=== PATIENT | female | born 1990 | race Caucasian/White ===

== ENCOUNTER 2016-05-08 01:16 | Emergency (ER) | payer BC ==
--- NOTE | 2016-05-08 01:24 | PDOC ---
History of Present Illness - General Chief Complaint: Nausea/Vomiting Stated Complaint: N/V Time Seen by Provider: 05/08/16 01:18 - History of Present Illness Initial Comments: This 26-year-old woman with a history of gastritis (thought to be secondary to NSAID use and endoscopically diagnosed) and anxiety/panic disorder, presents with a few hour history of acute anxiety followed by epigastric pain/nausea/ vomiting. 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 The patient reacted with near panic attack and somatic symptoms as noted above. The patient states that she frequently has abdominal pain (both epigastric and generalized, secondary to irritable bowel syndrome) when stressed or having extreme anxiety. She states that she has follow-up with her hr administrative assistant in approximately 2 weeks. She also has an ultrasound of her abdomen scheduled for this May 10. The patient has also been on Lexapro 20 mg daily for a few months, as treatment for her anxiety disorder, prescribed by her former psychiatrist. She can no longer see this psychiatrist because of insurance issues. Her general medical doctor had wanted to keep her on this medication until he can refer her to a psychiatrist within her insurance plan. The patient has follow-up appointment with her general doctor next week. However, her prescription for Lexapro ran out today. Past History - Past Medical History Allergies/Adverse Reactions: Allergies Allergy/AdvReac Type Severity Reaction Status Date / Time No Known Allergies Allergy Unverified 05/08/16 01:25 Home Medications: Ambulatory Orders Escitalopram Oxalate [Lexapro -] 20 mg PO DAILY #10 tablet 05/08/16 Ondansetron [Zofran Odt -] 4 mg SL TID #10 od.tablet 05/08/16 Pantoprazole Sodium 40 mg PO DAILY 05/08/16 Review of Systems - Review of Systems Able to Perform ROS?: Yes Comments:: 12 point review of systems is negative except for what is noted in the history of present illness *Physical Exam - Physical Exam Comments: Adult female, appearing anxious and in mild distress secondary to nausea/ epigastric discomfort, oriented 3 Vital signs as noted HEAD: No contusions, abrasions or lacerations of the scalp; no facial ecchymosis , deformities or tenderness EYES: Pupils equal, round and reactive to light, extraocular movements intact, sclera anicteric, conjunctiva clear PHARYNX: No erythema, exudate or edema; mucous membranes dry NECK: Supple, nontender, no masses or bruits LUNGS: Clear to auscultation bilaterally CARDIAC: S1, S2 normal; no extra sounds, rubs or murmurs heard ABDOMEN:Normoactive bowel sounds, generalized mild tenderness without peritoneal signs,, no masses, no organomegaly EXTREMITIES: Normal range of motion, no edema,deformity or tenderness NEUROLOGICAL: Cranial nerves II through XII grossly intact. Normal speech, normal gait.moving all 4 extremities equally, Sensation intact in all extremities. PSYCH: Normal mood, normal affect. SKIN: Warm, Dry, normal turgor, no rashes or lesions noted. Medical Decision Making - Medical Decision Making This 26-year-old woman presents with anxiety and epigastric discomfort/nausea with vomiting. Exam shows dry mucous membranes and epigastric tenderness (mild of without peritoneal signs). Patient will be given a liter of normal saline, 4 mg of Zofran IV and 40 mg of Protonix IV. Patient feels significantly better after fluid hydration and medications IV. Patient will be discharged with prescriptions for Lexapro 20 mg daily which she should continue until seen by her general medical doctor next week. Prescription for Zofran 4 mg ODT was also sent to her pharmacy for use when she has nausea. She should also continue her Protonix as prescribed and follow-up with her hr administrative assistant as planned. She should try to eat small frequent meals. Patient should return to the emergency room if she has persistent vomiting or develops persistent abdominal pain/fever *DC/Admit/Observation/Transfer Diagnosis at time of Disposition: Anxiety Gastritis Qualifiers: Gastritis type: other gastritis Chronicity: unspecified Gastritis bleeding: without bleeding Qualified Code(s): K29.60 - Other gastritis without bleeding - Discharge Dispostion Disposition: HOME Condition at time of disposition: Stable - Prescriptions Prescriptions: Escitalopram Oxalate [Lexapro -] 20 mg PO DAILY #10 tablet Ondansetron [Zofran Odt -] 4 mg SL TID #10 od.tablet - Patient Instructions Printed Discharge Instructions: DI for Gastritis Additional Instructions: Continue Protonix as prescribed Try to eat small ,frequent meals Continue Lexapro 20 mg daily until seen by your general physician Follow-up for abdominal ultrasound on May 10 as planned Zofran 4 mg ODT up to 3 times a day as needed for nausea Return to ER if you have severe pain/persistent vomiting No work tomorrow - Post Discharge Activity Work/School Note: Back to Work
[2016-05-08 01:25] VITALS: BP 102/67; PULSE 100; TEMP 97.9
[2016-05-08] MEDS ORDERED: ONDANSETRON 4 MG/2 ML VIAL ONE (01:31)
[2016-05-08] MEDS ORDERED: ONDANSETRON 4 MG/2 ML VIAL IVPUSH ONE (01:36)
[2016-05-08] MEDS ORDERED: SODIUM CHLORIDE 1,000 ML IV STA (01:36)
[2016-05-08] MEDS ORDERED: PANTOPRAZOLE SODIUM 40 MG in SODIUM CHLORIDE 100 ML IVPB ONE (01:36)
[2016-05-08] MEDS ORDERED: PANTOPRAZOLE SODIUM 40 MG VIAL ONE (01:41)
== END 2016-05-08 04:00 | disposition home or self-care (01) ==
LOC: FER 01:16
PROC: 3E033GC Introduction of Other Therapeutic Substance into Peripheral Vein, Percutaneous Approach (ICD-10-PCS; principal; 2016-05-08)
PROC: 3E0337Z Introduction of Electrolytic and Water Balance Substance into Peripheral Vein, Percutaneous Approach (ICD-10-PCS; 2016-05-08)
DX: F41.1 Generalized anxiety disorder (principal); K29.60 Other gastritis without bleeding
CPT/HCPCS: 99283-25

== ENCOUNTER 2016-06-07 14:25 | Inpatient (IN) | payer BC ==
[2016-06-07 14:47] VITALS: BMI 18.8
[2016-06-07] MEDS ORDERED: METOCLOPRAMIDE HCL INJECTION 10 MG/2 ML VIAL IVPB ONE (15:25)
[2016-06-07] MEDS ORDERED: PANTOPRAZOLE SODIUM 40 MG in SODIUM CHLORIDE 100 ML IVPB ONE (15:25)
[2016-06-07] MEDS ORDERED: SODIUM CHLORIDE 1,000 ML IV STA ×2 (15:25→18:54)
[2016-06-07] MEDS ORDERED: PANTOPRAZOLE SODIUM 40 MG VIAL ONE (15:26)
[2016-06-07 15:41] LABS: BASOPHIL 0.2 % (0-2.0); MCH 27.7 pg (25.7-33.7); MCHC 32.1 g/dl (32.0-36.0); MEAN CELL VOLUME 86.3 fl (80-96); MEAN PLT VOLUME 8.5 fl (7.5-11.1); NEUTROPHILS 84.1 % (42.8-82.8); PLATELET COUNT 434 K/MM3 (134-434); RDW 11.8 % (11.6-15.6); WHITE BLOOD COUNT 17.5 K/mm3 (4.0-10.0)
--- NOTE | 2016-06-07 15:46 | PDOC ---
History of Present Illness - General History Source: Patient Exam Limitations: No Limitations - History of Present Illness Initial Comments: 06/07/16 16:12 The patient is a 26-year-old woman with a history of gastritis (thought to be secondary to NSAID use and endoscopically diagnosed), gastroparesis, and anxiety /panic disorder, who presents to the ED with mid-abdominal pain radiating to the back, diarrhea, and multiple episodes of vomiting. Patient describes the mid-abdominal pain as stabbing and 20/10 in severity. She states she has never experienced this pain in the past. Patient says she ate a salad with chicken last night and has not been able to eat anything since. Patient denies fever, chills, constipation, hematochezia, dysuria, hematuria. Patient denies smoking, marijuana use. Patient was seen here in the ER on may 08 for nausea, vomiting. She followed up with GI doctor last week, and was diagnosed with gastroparesis. Plan is to follow up with specialist at [place] on jun 25 <Erick Correia - Last Filed: 06/07/16 19:43> <Kimmie Zamora - Last Filed: 06/07/16 19:53> - General History Source: Patient Exam Limitations: No Limitations <Wendi Bowman - Last Filed: 06/09/16 09:54> - General Chief Complaint: Vomiting/Diarrhea Stated Complaint: ABD PAIN, VOMITING, DIARRHEA Time Seen by Provider: 06/07/16 14:30 Past History <Erick Correia - Last Filed: 06/07/16 19:43> <Kimmie Zamora - Last Filed: 06/07/16 19:53> - Past Medical History GI Disorders: Yes (GASTROPARESIS) Psychiatric Problems: Yes (ANXIETY, DEPRESSION) - Psycho/Social/Smoking Cessation Hx Anxiety: No Suicidal Ideation: No Smoking History: Never smoked Have you smoked in the past 12 months: No Number of Cigarettes Smoked Daily: 0 Hx Alcohol Use: No Drug/Substance Use Hx: No Substance Use Type: None <Wendi Bowman - Last Filed: 06/09/16 09:54> - Past Medical History Allergies/Adverse Reactions: Allergies Allergy/AdvReac Type Severity Reaction Status Date / Time No Known Allergies Allergy Verified 06/07/16 14:31 Home Medications: Ambulatory Orders Escitalopram Oxalate [Lexapro -] 20 mg PO DAILY #10 tablet 05/08/16 Ondansetron [Zofran Odt -] 4 mg SL TID #10 od.tablet 05/08/16 Pantoprazole Sodium 40 mg PO DAILY 05/08/16 Review of Systems - Review of Systems Able to Perform ROS?: Yes Comments:: 06/07/16 16:12 GENERAL/CONSTITUTIONAL: No: fever, chills, weakness, loss of appetite. HEAD, EYES, EARS, NOSE AND THROAT: No: change in vision, ear pain, discharge, sore throat, throat swelling. CARDIOVASCULAR: No: chest pain, lightheadedness, palpitations, syncope RESPIRATORY: No: cough, shortness of breath, wheezing, hemoptysis, stridor. GASTROINTESTINAL: + nausea, vomiting, mid-abdominal pain radiating to the back. diarrhea No: rectal bleeding, constipation. GENITOURINARY: No: dysuria, hematuria, frequency, urgency, flank pain. MUSCULOSKELETAL: No: neck pain, joint pain, muscle swelling or pain SKIN AND BREASTS: No: lesions, pallor, rash or easy bruising. NEUROLOGIC: No: headache, vertigo, paresthesias, weakness ENDOCRINE: No: unexplained weight gain or loss HEMATOLOGIC/LYMPHATIC: No: anemia, easy bleeding, swelling nodes <Erick Correia - Last Filed: 06/07/16 19:43> *Physical Exam - Vital Signs Last Vital Signs Temp Pulse Resp BP Pulse Ox 97.5 F L 98 H 18 127/68 98 06/07/16 14:25 06/07/16 14:25 06/07/16 14:25 06/07/16 14:25 06/07/16 14:25 - Physical Exam Comments: 06/07/16 16:13 GENERAL: Uncomfortable appearing. Crying. Screaming. Lying on the floor. Retching. HEAD: Normal with no signs of trauma. EYES: PERRLA, EOMI, sclera anicteric, conjunctiva clear. ENT: Ears normal, nares patent, oropharynx clear without exudates. Dry mucous membranes. NECK: Normal range of motion, supple without lymphadenopathy, JVD, or masses. LUNGS: Breath sounds equal, clear to auscultation bilaterally. No wheezes, and no crackles. HEART:Regular rate and rhythm, normal S1 and S2 without murmur, rub or gallop. ABDOMEN: Epigastric tenderness. No guarding, no rebound. No distention. EXTREMITIES: Normal range of motion, no edema. No clubbing or cyanosis. No erythema, or tenderness. NEUROLOGICAL: Cranial nerves II through XII grossly intact. Normal speech. No focal neurological deficits. MUSCULOSKELETAL: Back non-tender to palpation, no CVA tenderness SKIN: Warm, Dry, normal turgor, no rashes or lesions noted. <Erick Correia - Last Filed: 06/07/16 19:43> - Vital Signs Last Vital Signs Temp Pulse Resp BP Pulse Ox 98.5 F 89 16 116/75 99 06/07/16 19:25 06/07/16 19:25 06/07/16 19:25 06/07/16 19:25 06/07/16 19:25 <Kimmie Zamora - Last Filed: 06/07/16 19:53> - Vital Signs Last Vital Signs Temp Pulse Resp BP Pulse Ox 97.5 F L 98 H 18 127/68 98 06/07/16 14:25 06/07/16 14:25 06/07/16 14:25 06/07/16 14:25 06/07/16 14:25 <Wendi Bowman - Last Filed: 06/09/16 09:54> ED Treatment Course - LABORATORY CBC & Chemistry Diagram: 06/07/16 15:30 06/07/16 15:30 - ADDITIONAL ORDERS Additional order review: Laboratory Results 06/07/16 15:30 Serum , Qual Negative 06/07/16 15:30 RBC 4.70 MCV 86.3 MCHC 32.1 RDW 11.8 MPV 8.5 Neutrophils % 84.1 H Lymphocytes % 11.4 Monocytes % 4.3 Eosinophils % 0.0 Basophils % 0.2 - RADIOLOGY Radiology Studies Ordered: 06/07/16 19:07 EXAM: CT abdomen and pelvis noncontrast EXAM DATE AND TIME: 2016-06-07 16:48:07.0 REASON FOR EXAM: Abdomen and flank pain COMPARISON: None. FINDINGS: The visualized lung bases are clear The liver is mildly enlarged. The unenhanced upper abdominal are otherwise grossly normal. No evidence of obstructive uropathy There is intussusception in a segment of small bowel in the lower abdomen and pelvis A distended segment of small bowel with air-fluid levels immediately proximal to the intussusception and several nondistended small bowel loops in the pelvis are concerning for early obstruction. The appendix is normal There is trace ascites in the pelvis which may be incidental physiologic fluid. No free air - Medications Given in the ED: ED Medications Discontinued Medications Generic Name Dose Route Start Last Admin Trade Name Kirill PRN Reason Stop Dose Admin Pantoprazole Sodium 40 mg/ 100 mls @ 200 mls/hr 06/07/16 15:25 06/07/16 15:30 Sodium Chloride IVPB 06/07/16 15:54 200 mls/hr ONCE ONE Administration Metoclopramide HCl 10 mg 06/07/16 15:25 06/07/16 15:45 Reglan Injection - IVPB 06/07/16 15:26 10 mg ONCE ONE Administration <Erick Correia - Last Filed: 06/07/16 19:43> - LABORATORY CBC & Chemistry Diagram: 06/07/16 15:30 06/07/16 15:30 - ADDITIONAL ORDERS Additional order review: Laboratory Results 06/07/16 06/07/16 06/07/16 18:20 17:57 17:45 INR 1.07 Sodium Potassium Chloride Carbon Dioxide Anion Gap BUN Creatinine Creat Clearance w eGFR Random Glucose Lactic Acid 2.260 H* Calcium Total Bilirubin AST ALT Alkaline Phosphatase Total Protein Albumin Total Amylase Lipase Serum , Qual Urine Color Yellow Urine Appearance Clear Urine pH 6.0 Ur Specific [place] 1.025 Urine Protein Negative Urine Glucose (UA) Trace Urine Ketones 1+ H Urine Blood Trace-intact Urine Nitrite Negative Urine Bilirubin Negative Urine Urobilinogen 0.2 e.u/dl Ur Leukocyte Esterase Negative 06/07/16 06/07/16 15:30 15:30 INR Sodium 137 Potassium 3.9 Chloride 99 Carbon Dioxide 24 Anion Gap 14 BUN 12 Creatinine 0.6 Creat Clearance w eGFR > 60 Random Glucose 180 H Lactic Acid Calcium 9.3 Total Bilirubin 0.3 AST 19 ALT 14 Alkaline Phosphatase 64 Total Protein 7.5 Albumin 3.7 Total Amylase 36 Lipase 30 Serum , Qual Negative Urine Color Urine Appearance Urine pH Ur Specific [place] Urine Protein Urine Glucose (UA) Urine Ketones Urine Blood Urine Nitrite Urine Bilirubin Urine Urobilinogen Ur Leukocyte Esterase 06/07/16 15:30 RBC 4.70 MCV 86.3 MCHC 32.1 RDW 11.8 MPV 8.5 Neutrophils % 84.1 H Lymphocytes % 11.4 Monocytes % 4.3 Eosinophils % 0.0 Basophils % 0.2 - Medications Given in the ED: ED Medications Discontinued Medications Generic Name Dose Route Start Last Admin Trade Name Kirill PRN Reason Stop Dose Admin Pantoprazole Sodium 40 mg/ 100 mls @ 200 mls/hr 06/07/16 15:25 06/07/16 15:30 Sodium Chloride IVPB 06/07/16 15:54 200 mls/hr ONCE ONE Administration Sodium Chloride 1,000 mls @ 1,000 mls/hr 06/07/16 15:25 06/07/16 15:00 Normal Saline - IV 06/07/16 16:24 1,000 mls/hr ASDIR STA Administration Lorazepam 0.5 mg 06/07/16 16:02 06/07/16 16:10 Ativan Injection - IVPUSH 06/07/16 16:03 0.5 mg ONCE ONE Administration Metoclopramide HCl 10 mg 06/07/16 15:25 06/07/16 15:45 Reglan Injection - IVPB 06/07/16 15:26 10 mg ONCE ONE Administration Morphine Sulfate 4 mg 06/07/16 16:02 06/07/16 16:05 Morphine Injection - IVPUSH 06/07/16 16:03 4 mg ONCE ONE Administration <Kimmie Zamora - Last Filed: 06/07/16 19:53> - LABORATORY CBC & Chemistry Diagram: 06/08/16 06:40 06/08/16 06:40 - ADDITIONAL ORDERS Additional order review: 06/07/16 15:30 RBC 4.70 MCV 86.3 MCHC 32.1 RDW 11.8 MPV 8.5 Neutrophils % 84.1 H Lymphocytes % 11.4 Monocytes % 4.3 Eosinophils % 0.0 Basophils % 0.2 <Wendi Bowman - Last Filed: 06/09/16 09:54> Medical Decision Making - Medical Decision Making 06/07/16 17:[address] Dr Mai <Erick Correia - Last Filed: 06/07/16 19:43> - Critical Care Time Total Critical Care Time (minutes): 35 Critical Care Statement: The care of this patient involved high complexity decision making to prevent further life threatening deterioration of the patient 's condition and/or to evalute & treat vital organ system(s) failure or risk of failure. - Medical Decision Making 06/07/16 15:46 A portion of this note was documented by scribe services under my direction. I have reviewed the details of the note, within reason, and agree with the documentation with the following case summary and management plan written by me. Nursing documentation reviewed and incorporated into medical decision making 06/07/16 16:25 This is a 26 yo F with a history of anxiety and panic disorder, recent dx of gastroparesis who presents to the ER with a complaint of abdominal pain and vomiting Pt was in her usual state of health until yesterday She had a salad with chicken Later in the evening she noted abdominal pain which has been worsening Pain is located in the upper abdomen She aso has pain going into her back No fevers or chills Multiple episodes of vomiting and diarrhea No abdominal distention DD: gastroparesis, gastroenteritis, colitis, pancreatitis 06/07/16 16:25 Laboratory Tests 06/07/16 06/07/16 15:30 15:30 WBC 17.5 H Hgb 13.0 Hct 40.6 Plt Count 434 Neutrophils % 84.1 H Sodium 137 Potassium 3.9 Chloride 99 Carbon Dioxide 24 BUN 12 Creatinine 0.6 Random Glucose 180 H 06/07/16 16:[address] abd and pelvis 06/07/16 17:51 CT demonstrates intussusception with early SBO Case reviewed with patient and family Call placed to Dr Mai 06/07/16 18:[address] Mai He has had a long discussion with this patient She would rather have an exploratory surgery Case reviewed with JUKE[employer] ROUTEMAN Jonathan Will admit to hospitalist service Clinical Impression: Intussusception Lactic acid pending <Wendi Bowman - Last Filed: 06/09/16 09:54> *DC/Admit/Observation/Transfer - Attestations Scribe Attestion: 06/07/16 16:17 Documentation prepared by Erick Correia, acting as medical microbiologist for Wendi Bowman MD. <Erick Correia - Last Filed: 06/07/16 19:43> - Discharge Dispostion Admit: Yes <Kimmie Zamora - Last Filed: 06/07/16 19:53> - Discharge Dispostion Admit: Yes <Wendi Bowman - Last Filed: 06/09/16 09:54> Diagnosis at time of Disposition: Intussusception intestine - Discharge Dispostion Condition at time of disposition: Stable
[2016-06-07] MEDS ORDERED: LORAZEPAM CARPU-JECT 2 MG/ML DISP.SYRIN IVPUSH ONE (16:02)
[2016-06-07] MEDS ORDERED: morphine CARPU-JECT 4 MG/1 ML DISP.SYRIN IVPUSH ONE (16:02)
[2016-06-07] MEDS ORDERED: morphine CARPU-JECT 10 MG/1 ML DISP.SYRIN ONE (16:03)
[2016-06-07] MEDS ORDERED: LORAZEPAM CARPU-JECT 2 MG/ML DISP.SYRIN ONE (16:03)
[2016-06-07 16:14] LABS: ALBUMIN 3.7 g/dl (3.5-5.0); ALK PHOS 64 U/L (32-92); AMYLASE 36 U/L (25-125); ANION GAP 14 (8-16); BILIRUBIN,TOTAL 0.3 mg/dl (0.2-1.0); CALCIUM 9.3 mg/dl (8.4-10.2); CO2 24 mmol/L (22-28); CREATININE 0.6 mg/dl (0.6-1.3); GLUCOSE,RANDOM 180 mg/dl (74-106); SGOT/AST 19 U/L (10-42); SGPT/ALT 14 U/L (10-40); TOT PROT 7.5 g/dl (6.4-8.3)
[2016-06-07 18:05] LABS: URINE APPEARANCE Clear; URINE BILIRUBIN Negative (NEGATIVE); URINE BLOOD Trace-intact (NEGATIVE); URINE GLUCOSE (UA) Trace (NEGATIVE); URINE KETONE 1+ (NEGATIVE); URINE LEUK ESTERASE Negative (NEGATIVE); URINE NITRITE Negative (NEGATIVE); URINE PROTEIN Negative (NEGATIVE); URINE UROBILINOGEN 0.2 E.U/dl (0.2-1.0)
[2016-06-07 18:06] LABS: URINE COLOR YELLOW
[2016-06-07 18:56] LABS: INR 1.07 (0.82-1.09); PROTHROMBIN TIME (PATIENT) 11.7 SEC (10.2-13.0)
[2016-06-07] MEDS ORDERED: PROPOFOL 20 ML ONE (19:32)
[2016-06-07] MEDS ORDERED: MIDAZOLAM HCL 2 MG/2 ML SINGLE DOSE VIAL ONE ×2 (19:32→20:06)
[2016-06-07] MEDS ORDERED: SUCCINYLCHOLINE CHLORIDE 200 MG/10 ML VIAL ONE (19:32)
[2016-06-07] MEDS ORDERED: ROCURONIUM BROMIDE 50 MG/5 ML VIAL ONE (19:32)
[2016-06-07] MEDS ORDERED: ONDANSETRON 4 MG/2 ML VIAL ONE ×2 (19:32→20:13)
--- NOTE | 2016-06-07 19:43 | PN ---
Progress Note (short form) - Note Progress Note: surgery pt seen and examined. Full ER consult dictated. 26f with 3 months of intermittent epigastric pain, diarrhea, 10lb weight loss. Pt has seen GI specialist for egd, HIDA, US, and stomach emptying study. Pt was given a diagnosis of gastroparesis. No hx of dm. Pt presents to [facility] ER with severe epigastric pain, blood in her stool, leukocytosis, and Ct showing intussuception of mid small bowel causing psbo and ascites. On exam abd is soft , with 4 quadrant tenderness, rebound, no guarding. Plan- suspect intussuception from lead point, possible polyp/endometriosis, or tumor. It could also be an incidental finding with other etiology of her symptoms but less likely. Pt offered observation and repeat ct in am with contrast to see if intussucception is permanant or a transient finding. Pt, mother, and father decline and want exploratory surgery. Will proceed with surgery. Pt understands risk of negative laparotomy, incisional hernia, future sbo, anastamotic leak. will give levaquin to cover skin osvaldo and e.coli and other enteric osvaldo.
[2016-06-07] MEDS ORDERED: LEVOFLOXACIN 25 MG/1 ML (20 ML VIAL) IVPB ONE (19:44)
[2016-06-07] MEDS ORDERED: ONDANSETRON 4 MG/2 ML VIAL IVPB PRN ×3 (19:51→20:22)
[2016-06-07] MEDS ORDERED: ACETAMINOPHEN 325 MG TABLET (FP) PO PRN ×3 (19:51→20:22)
[2016-06-07] MEDS ORDERED: IBUPROFEN 800 MG/8 ML IJ IVPB PRN (19:54)
--- NOTE | 2016-06-07 19:58 | OP ---
Operative Note - Note: Operative Date: 06/07/16 Pre-Operative Diagnosis: intussucception, sbo, acute abdomen Operation: exploratory laparotomy, small bowel resection Findings: thickened segment of small bowel with intussucception, hemorrhagic bowel Post-Operative Diagnosis: Same as Pre-op Surgeon: Narinder Mai Anesthesiologist/CONSUMER LOAN MANAGER: Brad Cortés Anesthesia: General Specimens Removed: portion of small bowel with intussucception Estimated Blood Loss (mls): 10
[2016-06-07] MEDS ORDERED: D5-1/2NS+20 MEQ KCL - 1,000 ML IV SCH ×4 (20:00)
[2016-06-07] MEDS ORDERED: HYDROmorphone *PCA* 10MG/50ML DISP.SYRIN PCA ONE ×2 (20:03→22:22)
[2016-06-07] MEDS ORDERED: DEXAMETHASONE SOD PHOSPHATE 4 MG/1 ML VIAL ONE (20:14)
[2016-06-07] MEDS ORDERED: NEOSTIGMINE METHYLSULFATE 0.5 MG/ML - 10 ML MDV ONE (20:14)
[2016-06-07] MEDS ORDERED: GLYCOPYRROLATE 0.2 MG/1 ML VIAL ONE ×3 (20:14)
[2016-06-07] MEDS ORDERED: HYDROmorphone *PCA* 10MG/50ML DISP.SYRIN PCA SCH (21:30)
[2016-06-07] MEDS ORDERED: LACTATED RINGERS SOLUTION 1,000 ML IV SCH (21:30)
[2016-06-07] MEDS ORDERED: SODIUM CHLORIDE 250 ML IV STA (21:48)
--- NOTE | 2016-06-07 21:50 | CONS ---
DATE OF CONSULTATION: 06/07/2016 REASON FOR CONSULTATION: Intussusception. CONSULTATION REQUESTED BY: Emergency Room Physician. BRIEF HISTORY: This is a 26-year-old female with a 3-month history of epigastric abdominal pain, 10-pound weight loss, nausea, vomiting, and diarrhea. She has had an extensive GI workup including upper endoscopy, HIDA scan, abdominal ultrasound and gastric emptying study. She has not had a colonoscopy. At this point, her working diagnosis is gastroparesis, although she has no history of diabetes. The patient presents to the [facility] where this emergency room consultation was requested, complaining of worsening of pain, diarrhea, and now blood in her stool, and she also has vomiting. She is noted to have 4-quadrant tenderness with leukocytosis and a CAT scan is done without contrast showing a segment of small bowel with an intussusception causing a partial bowel obstruction and fluid within the abdominal cavity. At this point, an ER surgical consultation was requested. Patient states the pain is severe. PAST MEDICAL HISTORY: Otherwise negative. PAST SURGICAL HISTORY: Only includes oral surgery without bleeding complications. SOCIAL HISTORY: Positive for occasional alcohol consumption. Negative for tobacco. FAMILY HISTORY: Significant for father with prostate cancer. ALLERGIES: She has no known drug allergies. HOME MEDICATIONS: Include control pills, Protonix, Lexapro, and Zofran. REVIEW OF SYSTEMS: General: Admits to fatigue. Cardiac: Denies chest pain or palpitations. Respiratory: Denies shortness of breath or wheeze. Gastrointestinal: As in HPI. She admits to 10-pound with loss. Genitourinary: Denies dysuria. Musculoskeletal: Denies joint pain or joint swelling. Psychiatric: Denies anxiety, depression or hearing voices. PHYSICAL EXAMINATION: General: This is a thin 26-year-old female who is writhing in pain. Vital Signs: She is afebrile. Her vital signs are stable. HEENT: Her head is normocephalic. Sclerae are anicteric. Neck: Supple. Chest: Clear. Abdomen: Mildly distended. There are no surgical scars. She has 4-quadrant tenderness with rebound but there is no guarding. Extremities: No clubbing, cyanosis, or edema. Anal: Deferred. She is under the care of a dairy lab technician. LABORATORY DATA: Her white blood cell count is elevated 17.5. Her chemistries are unremarkable with normal lipase, and she is not . IMAGING: She has a CT scan of the abdomen and pelvis. [place] reading shows a normal appendix, trace ascites, intussusception and a segment of small bowel in the lower abdomen and pelvis and proximal distention consistent with early obstruction. ASSESSMENT: This is a 26-year-old female with weight loss, epigastric abdominal pain, nausea, vomiting, diarrhea, blood in her stool, leukocytosis, and a CAT scan showing an abnormal segment of small bowel with an intussusception, a small amount of ascites and causing a proximal obstruction. Patient is clinically in severe pain. She has blood in her stool. I am concerned for an intussusception caused by a lead point, which I suspect has been causing her chronic symptoms since March that are now becoming acute with possible compromise of the bowel. At this point, I have offered the patient exploratory surgery. I have also discussed the possibility that the intussusception is simply a transient finding and that her symptoms may be from her underlying gastroparesis and gastritis, but based on the patient's examination, I am concerned that this may not be the case. I have offered her to be observed overnight with repeat CAT scan in the morning utilizing oral and IV contrast to see if the intussusception is indeed a permanent finding, but patient declines this option. She states she is in too much pain and wished to be explored tonight. I had a long conversation with the patient, her mother as well as her father, taking place for over 30 minutes and all are in agreement to proceed with surgery. They understand that this might be a negative nontherapeutic laparotomy. They also understand that she has future risk of hernia as well as future obstruction and that she could have anastomotic leak if a segment of small bowel is resected, as is planned. PLAN: At this point, will give her Levaquin prophylaxis and move in the direction of surgery. The family understands that she has not had a complete workup and has not a colonoscopy. They understand this could be underlying Crohn disease, which is often treated with medications. They also understand that this could be complications of endometriosis, which also could be treated medically but with no diagnosis being confirmed and an inability to do further workup in the acute setting, they have agreed to proceed with surgery. DO CATRACHITA SEAMAN/[id number]
--- NOTE | 2016-06-07 21:58 | HP ---
CHIEF COMPLAINT: Abdominal Pain PCP: HISTORY OF PRESENT ILLNESS: This is a 26 y/o female with a past medical history gastritis (thought to be secondary to NSAID use and endoscopically diagnosed), gastroparesis, and anxiety /panic disorder. Who presents to the ED with mid-abdominal pain radiating to the back, diarrhea, and multiple episodes of vomiting. Patient describes the mid-abdominal pain as stabbing and 20/10 in severity. She states she has never experienced this pain in the past. Patient says she ate a salad with chicken last night and has not been able to eat anything since. Patient denies fever, chills, constipation, hematochezia, dysuria, hematuria. Patient denies smoking, marijuana use. ER course was notable for: (1) WBC 17.5, Neutrophils 84.1 (2) CTAP- There is intussusception in a segment of small bowel in the lower abdomen and pelvis (3) Recent Travel: None PAST MEDICAL HISTORY: Gastritis Gastroparesis Anxiety/Panic Disorder PAST SURGICAL HISTORY: EGD Social History: Smoking: None Alcohol: None Drugs: None Family History: Non-Contributory Allergies No Known Allergies Allergy (Verified 06/07/16 14:31) HOME MEDICATIONS: Home Medications Medication Instructions Recorded Escitalopram Oxalate [Lexapro -] 20 mg PO DAILY #10 tablet 05/08/16 Ondansetron [Zofran Odt -] 4 mg SL TID #10 od.tablet 05/08/16 Pantoprazole Sodium 40 mg PO DAILY 05/08/16 REVIEW OF SYSTEMS CONSTITUTIONAL: Absent: fever, chills, diaphoresis, generalized weakness, malaise, loss of appetite, weight change HEENT: Absent: rhinorrhea, nasal congestion, throat pain, throat swelling, difficulty swallowing, mouth swelling, ear pain, eye pain, visual changes CARDIOVASCULAR: Absent: chest pain, syncope, palpitations, irregular heart rate, lightheadedness , peripheral edema RESPIRATORY: Absent: cough, shortness of breath, dyspnea with exertion, orthopnea, wheezing, stridor, hemoptysis GASTROINTESTINAL: abdominal pain, nausea, vomiting, diarrhea Absent: abdominal distension, constipation, melena, hematochezia GENITOURINARY: Absent: dysuria, frequency, urgency, hesitancy, hematuria, flank pain, genital pain MUSCULOSKELETAL: Absent: myalgia, arthralgia, joint swelling, back pain, neck pain SKIN: Absent: rash, itching, pallor HEMATOLOGIC/IMMUNOLOGIC: Absent: easy bleeding, easy bruising, lymphadenopathy, frequent infections ENDOCRINE: Absent: unexplained weight gain, unexplained weight loss, heat intolerance, cold intolerance NEUROLOGIC: Absent: headache, focal weakness or paresthesias, dizziness, unsteady gait, seizure, mental status changes, bladder or bowel incontinence PSYCHIATRIC: Absent: anxiety, depression, suicidal or homicidal ideation, hallucinations. PHYSICAL EXAMINATION Vital Signs - 24 hr 06/07/16 06/07/16 06/07/16 21:22 21:25 21:30 Temperature 98.6 F Pulse Rate 101 H 95 H 93 H Respiratory 18 18 18 Rate Blood Pressure 114/67 115/71 111/84 O2 Sat by Pulse 100 100 100 Oximetry (%) 06/07/16 21:35 Temperature Pulse Rate 92 H Respiratory 18 Rate Blood Pressure 113/69 O2 Sat by Pulse 100 Oximetry (%) GENERAL: Asleep but arousable, oriented x3, in no acute distress. HEAD: Normal with no signs of trauma. EYES: Pupils equal, round and reactive to light, extraocular movements intact, sclera anicteric, conjunctiva clear. No lid lag. EARS, NOSE, THROAT: Ears normal, nares patent, oropharynx clear without exudates. Dry mucous membranes. NECK: Normal range of motion, supple without lymphadenopathy, JVD, or masses. LUNGS: Breath sounds equal, clear to auscultation bilaterally. No wheezes, and no crackles. No accessory muscle use. HEART: Regular rate and rhythm, normal S1 and S2 without murmur, rub or gallop. ABDOMEN: Generalized tenderness, hypoactive bowel sounds, dermabond with dressing intact to mid umbilical region. Soft, not distended, no guarding, no rebound, no masses. No hepatomegaly or splenomegaly. GENITOURINARY: Loaiza catheter with yellow urine in drainage bag 100cc MUSCULOSKELETAL: Normal range of motion at all joints. No bony deformities or tenderness. No CVA tenderness. UPPER EXTREMITIES: 2+ pulses, warm, well-perfused. No cyanosis. No clubbing. Cap refill <2 seconds. No peripheral edema. LOWER EXTREMITIES: 2+ pulses, warm, well-perfused. No calf tenderness. No peripheral edema. NEUROLOGICAL: Cranial nerves II-XII intact. Normal speech. Gait not observed. PSYCHIATRIC: Cooperative. Good eye contact. Appropriate mood and affect. SKIN: Warm, dry, normal turgor, no rashes or lesions noted. Laboratory Results - last 24 hr 06/07/16 06/07/16 06/07/16 15:30 15:30 15:30 WBC 17.5 H RBC 4.70 Hgb 13.0 Hct 40.6 MCV 86.3 MCHC 32.1 RDW 11.8 Plt Count 434 MPV 8.5 Neutrophils % 84.1 H Lymphocytes % 11.4 Monocytes % 4.3 Eosinophils % 0.0 Basophils % 0.2 INR Sodium 137 Potassium 3.9 Chloride 99 Carbon Dioxide 24 Anion Gap 14 BUN 12 Creatinine 0.6 Creat Clearance w eGFR > 60 Random Glucose 180 H Lactic Acid Calcium 9.3 Total Bilirubin 0.3 AST 19 ALT 14 Alkaline Phosphatase 64 Total Protein 7.5 Albumin 3.7 Total Amylase 36 Lipase 30 Serum , Qual Negative Urine Color Urine Appearance Urine pH Ur Specific Hodges Urine Protein Urine Glucose (UA) Urine Ketones Urine Blood Urine Nitrite Urine Bilirubin Urine Urobilinogen Ur Leukocyte Esterase Blood Type Antibody Screen 06/07/16 06/07/16 06/07/16 17:45 17:57 18:20 WBC RBC Hgb Hct MCV MCHC RDW Plt Count MPV Neutrophils % Lymphocytes % Monocytes % Eosinophils % Basophils % INR 1.07 Sodium Potassium Chloride Carbon Dioxide Anion Gap BUN Creatinine Creat Clearance w eGFR Random Glucose Lactic Acid 2.260 H* Calcium Total Bilirubin AST ALT Alkaline Phosphatase Total Protein Albumin Total Amylase Lipase Serum , Qual Urine Color Yellow Urine Appearance Clear Urine pH 6.0 Ur Specific Hodges 1.025 Urine Protein Negative Urine Glucose (UA) Trace Urine Ketones 1+ H Urine Blood Trace-intact Urine Nitrite Negative Urine Bilirubin Negative Urine Urobilinogen 0.2 e.u/dl Ur Leukocyte Esterase Negative Blood Type Antibody Screen 06/07/16 06/07/16 18:20 18:41 WBC RBC Hgb Hct MCV MCHC RDW Plt Count MPV Neutrophils % Lymphocytes % Monocytes % Eosinophils % Basophils % INR Sodium Potassium Chloride Carbon Dioxide Anion Gap BUN Creatinine Creat Clearance w eGFR Random Glucose Lactic Acid Calcium Total Bilirubin AST ALT Alkaline Phosphatase Total Protein Albumin Total Amylase Lipase Serum , Qual Urine Color Urine Appearance Urine pH Ur Specific Hodges Urine Protein Urine Glucose (UA) Urine Ketones Urine Blood Urine Nitrite Urine Bilirubin Urine Urobilinogen Ur Leukocyte Esterase Blood Type A POSITIVE A POSITIVE Antibody Screen Negative - RADIOLOGY Radiology Studies Ordered: 06/07/16 19:07 EXAM: CT abdomen and pelvis noncontrast EXAM DATE AND TIME: 2016-06-07 16:48:07.0 REASON FOR EXAM: Abdomen and flank pain COMPARISON: None. FINDINGS: The visualized lung bases are clear The liver is mildly enlarged. The unenhanced upper abdominal are otherwise grossly normal. No evidence of obstructive uropathy There is intussusception in a segment of small bowel in the lower abdomen and pelvis A distended segment of small bowel with air-fluid levels immediately proximal to the intussusception and several nondistended small bowel loops in the pelvis are concerning for early obstruction. The appendix is normal There is trace ascites in the pelvis which may be incidental physiologic fluid. No free air ASSESSMENT/PLAN: This is a 26 y/o female with a PMHx of: Gastritis (thought to be secondary to NSAID use and endoscopically diagnosed), gastroparesis, anxiety/panic disorder. Who presented to the ED with mid- abdominal pain, vomiting, diarrhea x am. Admitted for Intussception, Abdominal Pain for further evaluation of their emergent condition. Plan: 1. GI: Intussception/Abdominal Pain/Vomiting/Diarrhea - CTAP- See above - Surgery following - Continue IVF - Pain Mgmt- SENIOR ACCOUNTANT pump per surgery - Monitor CBC, BMP - Monitor vitals - Incentive Spirometer - Zofran prn 2. Leukocytosis - Likely secondary to Intussception - Blood Cultures-pending - Levaquin given in OR - Will continue Levaquin - Monitor CBC 3. Lactic Acidemia - Likely secondary to Intussception - Fluid bolus x1 - repeat lactic Acid in am 4. F/E/N - D51/2 NS with KCL - Replete lytes prn - NPO for now advance ad glenn 5. DVT/PPI Prophylaxis - OOB - SCDs - Lovenox SQ Code Status: Full Code Problem List - Problem (1) Intussusception intestine Code(s): K56.1 - INTUSSUSCEPTION (2) Anxiety Code(s): F41.9 - ANXIETY DISORDER, UNSPECIFIED (3) DVT prophylaxis Code(s): WLQ4624 - Visit type - Emergency Visit Emergency Visit: Yes ED Registration Date: 06/07/16 Care time: The patient presented to the Emergency Department on the above date and was hospitalized for further evaluation of their emergent condition. - New Patient This patient is new to me today: Yes Date on this admission: 06/07/16 - Critical Care Critical Care patient: No
--- NOTE | 2016-06-07 22:03 | OP ---
DATE OF OPERATION: 06/07/2016 PREOPERATIVE DIAGNOSIS: Acute abdomen, small bowel obstruction, intussusception. POSTOPERATIVE DIAGNOSIS: Acute abdomen, small bowel obstruction, intussusception. PROCEDURE: Exploratory laparotomy through a mini incision, small bowel resection , lavage. SURGEON: Narinder Mai DO INVESTIGATOR: None. ANESTHESIOLOGIST: Brad Cortés MD (general) INTRAOPERATIVE FINDINGS: Intussuscept segment of small bowel with hemorrhagic compromise of the segment and partial bowel obstruction. BRIEF HISTORY: This is a 26-year-old female with several months' history of abdominal pain and extensive GI workup presented to [facility] with abdominal pain, nausea, vomiting, diarrhea and blood in her stool. CAT scan was consistent with intussusception and small bowel obstruction. On examination, she had an acute abdomen and she presents now for surgery. PROCEDURE: The patient was placed in supine position. After general anesthesia was initiated, the abdomen was prepped and draped in the sterile fashion. Loaiza catheter was inserted. The patient received Levaquin antibiotic prophylactically. Next , a vertical incision was made approximately 1 inch above and below the umbilicus and going right through the middle of the umbilicus. Scalpel was used to go through skin and subcutaneous tissue. The fascia was then opened in the midline. The peritoneum was entered sharply. Upon entering the abdominal cavity, the small bowel was run. A large small bowel mass consistent with an intussusception and edema with a hemorrhagic portion was delivered through the wound. This was clearly the source of the patient's symptoms, her obstruction and likely her symptoms for the past several months. At this point, the segment was resected and a [id number] anastomosis was done using a KG-80 blue load stapler, a TA-60 blue load stapler was used to close the enterotomy. The LigaSure device was used to divide the mesoappendix and 0 silk ties were placed on major feeding vessels to this segment. The entire segment was approximately 6 inches in length; however, it was probably double that since it was intussuscept. The mesenteric defect was then closed with a running chromic. The anastomosis was reinforced with Lembert suture. The anastomosis was checked for patency visually and by passing succus proximal and distal, distal to proximal. There were no signs of compromise. There were no breaks in the staple line. At this point, the bowel was placed back in the abdominal cavity. The intussuscepted portion was sent to Pathology and marked as specimen. A limited lavage was done with approximately 2 L of warm fluid. It was suctioned. Al return was clear. The bowel, transverse colon and omentum was placed back in its usual location. A full exploration was not able to be done through this mini incision, but due to the patient's young age and for the interest of cosmesis, the incision was not extended in order to do a more thorough laparotomy. At this point, the fascia was closed with running PDS suture. The skin was closed with interrupted Biosyn. Dermabond dressing was placed. Overall, the patient tolerated the procedure well. There were no complications. Loaiza catheter was to be left in overnight. The patient will be reevaluated in the morning for the need to continue antibiotic. DO CATRACHITA SEAMAN/[id number] MTDD
[2016-06-08 08:21] LABS: BASOPHIL 0.1 % (0-2.0); MCH 28.7 pg (25.7-33.7); MEAN PLT VOLUME 8.6 fl (7.5-11.1); NEUTROPHILS 91.6 % (42.8-82.8); PLATELET COUNT 330 K/MM3 (134-434); RDW 12.5 % (11.6-15.6); WHITE BLOOD COUNT 19.2 K/mm3 (4.0-10.0)
[2016-06-08 08:31] LABS: CALCIUM 8.3 mg/dL (8.5-10.1); CREATININE 0.6 mg/dL (0.55-1.02); MAGNESIUM 1.7 mg/dL (1.8-2.4); PHOSPHOROUS 3.7 mg/dL (2.5-4.9)
[2016-06-08] MEDS ORDERED: MAGNESIUM SULF 50% (8.12 MEQ/2 ML-1 GM VIAL) IVPB ONE ×2 (09:10→10:15)
[2016-06-08] MEDS ORDERED: PANTOPRAZOLE SODIUM 40 MG in SODIUM CHLORIDE 100 ML IVPB SCH ×3 (10:00)
[2016-06-08] MEDS ORDERED: LEVOFLOXACIN 500 MG IVPB 100 ML IVPB SCH (10:00)
[2016-06-08] MEDS: ENOXAPARIN NA (PORCINE) 40 MG/0.4 ML DISP.SYRIN SQ SCH (10:00)
[2016-06-08] MEDS ORDERED: ESCITALOPRAM OXALATE PO SCH ×3 (10:00)
[2016-06-08] MEDS: ESCITALOPRAM OXALATE 20 MG TABLET (FP) PO SCH ×3 (10:00→17:58)
[2016-06-08] MEDS ORDERED: ENOXAPARIN NA (PORCINE) 40 MG/0.4 ML DISP.SYRIN SQ SCH ×7 (10:00)
[2016-06-08] MEDS: PANTOPRAZOLE SODIUM 100 ML IVPB SCH (10:02)
[2016-06-08] MEDS: METRONIDAZOLE 500 MG PREMIXED 100 ML IVPB SCH ×3 (10:23→20:19)
[2016-06-08] MEDS: cefTRIAXone 1 GM/50 ML BAG (PRE-DOCKED) IVPB SCH (10:24)
--- NOTE | 2016-06-08 10:57 | PN ---
Progress Note (short form) - Note Progress Note: Subjective: The patient was seen and examined at the bedside, she denies passing gas. She reports having discomfort at her incision site. Current Medications Generic Name Dose Route Start Last Admin Trade Name Freq PRN Reason Stop Dose Admin Acetaminophen 650 mg 06/07/16 20:22 Tylenol - PO Q4H PRN FEVER OR PAIN Ceftriaxone Sodium 1 gm 06/08/16 10:00 06/08/16 10:24 Rocephin 1gm Ivpb (Pre-Docked) IVPB 1 gm DAILY GUERDA Administration Enoxaparin Sodium 40 mg 06/08/16 10:00 06/08/16 10:00 Lovenox - SQ 40 mg DAILY GUERDA Administration Escitalopram Oxalate 20 mg 06/08/16 10:00 06/08/16 10:14 Lexapro - PO Not Given DAILY GUERDA Fentanyl 50 mcg 06/07/16 21:29 Sublimaze Injection - IVPUSH 06/10/16 21:30 [id number] PRN Hydromorphone HCl 0 mg 06/07/16 21:30 Dilaudid Documentation Billing Clerk - TRANSFORMATION ARCHITECT 06/10/16 21:30 TRANSFORMATION ARCHITECT GUERDA Protocol Potassium Chloride/Dextrose/Sod Cl 1,000 mls @ 125 mls/hr 06/07/16 20:00 D5-1/2ns+20 Meq Kcl - IV ASDIR GUERDA Pantoprazole Sodium 100 mls @ 200 mls/hr 06/08/16 10:00 06/08/16 10:02 Protonix 40mg Ivpb (Pre-Docked) IVPB 200 mls/hr DAILY GUERDA Administration Lactated Ringer's 1,000 mls @ 125 mls/hr 06/07/16 21:30 Lactated Ringers Solution IV ASDIR GUERDA Metronidazole 100 mls @ 100 mls/hr 06/08/16 10:00 06/08/16 10:23 Flagyl 500mg Premixed Ivpb - IVPB 100 mls/hr Q6H-IV GUERDA Administration Ibuprofen 800 mg 06/07/16 19:54 Caldolor Injection - IVPB ONCE PRN PAIN Ondansetron HCl 4 mg 06/07/16 20:22 Zofran Injection IVPB Q6H PRN NAUSEA Objective: Vital Signs Period Temp Pulse Resp BP Sys/Mario Pulse Ox Last 24 Hr 97.5 F-98.8 F 76-101 16-19 101-127/64-84 98-100 Physical Exam: General: NAD, A&Ox3 Lungs: CTA bilaterally Heart: RRR, S1S2 Abd: Midline incision with surgical glue, C/D/I, no erythema. Hypoactive bowel sounds. Soft, mildly tender abdomen, non-distended. Ext: Warm, well-perfused. SCDs bilaterally Neuro: CN 2-12 intact CBCD WBC 19.2 K/mm3 (4.0-10.0) H 06/08/16 06:40 RBC 4.15 M/mm3 (3.60-5.2) 06/08/16 06:40 Hgb 11.9 GM/dL (10.7-15.3) 06/08/16 06:40 Hct 36.1 % (32.4-45.2) 06/08/16 06:40 MCV 87.0 fl (80-96) 06/08/16 06:40 MCHC 33.0 g/dl (32.0-36.0) 06/08/16 06:40 RDW 12.5 % (11.6-15.6) 06/08/16 06:40 Plt Count 330 K/MM3 (134-434) 06/08/16 06:40 MPV 8.6 fl (7.5-11.1) 06/08/16 06:40 CMP Sodium 137 mmol/L (136-145) 06/08/16 06:40 Potassium 4.5 mmol/L (3.5-5.1) 06/08/16 06:40 Chloride 101 mmol/L (98-107) 06/08/16 06:40 Carbon Dioxide 25 mmol/L (21-32) 06/08/16 06:40 Anion Gap 11 (8-16) 06/08/16 06:40 BUN 4 mg/dL (7-18) L 06/08/16 06:40 Creatinine 0.6 mg/dL (0.55-1.02) 06/08/16 06:40 Creat Clearance w eGFR > 60 (>60) 06/07/16 15:30 Random Glucose 187 mg/dL (74-106) H 06/08/16 06:40 Calcium 8.3 mg/dL (8.5-10.1) L 06/08/16 06:40 Total Bilirubin 0.3 mg/dl (0.2-1.0) 06/07/16 15:30 AST 19 U/L (10-42) 06/07/16 15:30 ALT 14 U/L (10-40) 06/07/16 15:30 Alkaline Phosphatase 64 U/L (32-92) 06/07/16 15:30 Total Protein 7.5 g/dl (6.4-8.3) 06/07/16 15:30 Albumin 3.7 g/dl (3.5-5.0) 06/07/16 15:30 Assessment: This is a 26 year old female with PMHx of gastritis, gastroparesis, anxiety/panic disorder, who presented to the ED with abdominal pain, nausea, vomiting, diarrhea, and was found to have intussception Plan: 1) GI: Intussception s/p exploratory laparotomy, small bowel resection on 06/07 - Remains NPO - Pain management with Dilaudid TRANSFORMATION ARCHITECT - Incentive spirometer - Continue Rocephin - Continue Flagyl - Worsening leukocytosis - Remains afebrile - Elevated lactic acid level, continue IV fluids and recheck this PM - F/u blood cultures - Zofran prn - Continue burton catheter care - Appreciate surgery consult 2) F/E/N: - NPO - IV fluids 3) Prophylaxis: - Lovenox sq daily 4) Dispo: - Requires continued inpatient care CODE STATUS: FULL CODE Visit type - Emergency Visit Emergency Visit: Yes ED Registration Date: 06/07/16 Care time: The patient presented to the Emergency Department on the above date and was hospitalized for further evaluation of their emergent condition. - New Patient This patient is new to me today: Yes Date on this admission: 06/08/16 - Critical Care Critical Care patient: No
[2016-06-08] MEDS ORDERED: HYDROmorphone *PCA* 10MG/50ML DISP.SYRIN PCA ONE (12:45)
[2016-06-08] MEDS ORDERED: DEXTROSE 5%-NORMAL SALINE 1,000 ML IV SCH (16:15)
--- NOTE | 2016-06-08 16:22 | PN ---
Progress Note (short form) - Note Progress Note: surgery pt seen and examined. feels much better. soreness around incision. not oob. burton still in. 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 on motrin, prn morphine, prn oxycodone. 4) intussucception- follow path to see if there is a lesion that caused it. polyp vs endometriosis, vs neoplasm 5) prophylaxis- protonix. oob, spirometer, lovenox 6) will give NS to raise Na level above 140 7) hypomagnesemia- will replace 8) lactic acidosis- from sepis and compromised bowel- should normalize
[2016-06-08] MEDS: morphine CARPU-JECT 4 MG/1 ML DISP.SYRIN IVPUSH PRN ×3 (17:39→21:50)
[2016-06-08] MEDS: oxyCODONE HCL 5 MG TABLET PO PRN ×2 (17:58→22:37)
[2016-06-08] MEDS ORDERED: SODIUM CHLORIDE 1,000 ML IV SCH (19:00)
[2016-06-09] MEDS: morphine CARPU-JECT 4 MG/1 ML DISP.SYRIN IVPUSH PRN ×4 (01:55→19:40)
[2016-06-09] MEDS: METRONIDAZOLE 500 MG PREMIXED 100 ML IVPB SCH ×4 (03:02→20:46)
[2016-06-09] MEDS: cefTRIAXone 1 GM/50 ML BAG (PRE-DOCKED) IVPB SCH (09:56)
[2016-06-09] MEDS: ESCITALOPRAM OXALATE 20 MG TABLET (FP) PO SCH (09:57)
[2016-06-09] MEDS: PANTOPRAZOLE SODIUM 100 ML IVPB SCH (10:01)
[2016-06-09] MEDS: ENOXAPARIN NA (PORCINE) 40 MG/0.4 ML DISP.SYRIN SQ SCH (10:02)
[2016-06-09 10:14] LABS: ALBUMIN 2.7 g/dl (3.5-5.0); ALK PHOS 49 U/L (32-92); ANION GAP 9 (8-16); BILIRUBIN,TOTAL 0.5 mg/dl (0.2-1.0); CALCIUM 8.4 mg/dl (8.4-10.2); CO2 27 mmol/L (22-28); CREATININE 0.5 mg/dl (0.6-1.3); GLUCOSE,RANDOM 101 mg/dl (74-106); MAGNESIUM 1.8 mg/dL (1.8-2.4); PHOSPHOROUS 2.5 mg/dl (2.5-4.6); SGOT/AST 25 U/L (10-42); SGPT/ALT 15 U/L (10-40); TOT PROT 6.1 g/dl (6.4-8.3)
[2016-06-09 10:28] LABS: BASOPHIL 0.1 % (0-2.0); EOSINOPHIL 0.1 % (0-4.5); MCH 28.4 pg (25.7-33.7); MCHC 32.8 g/dl (32.0-36.0); MEAN CELL VOLUME 86.5 fl (80-96); MEAN PLT VOLUME 8.2 fl (7.5-11.1); PLATELET COUNT 347 K/MM3 (134-434); RDW 11.9 % (11.6-15.6); WHITE BLOOD COUNT 12.5 K/mm3 (4.0-10.0)
[2016-06-09] MEDS: ONDANSETRON 4 MG/2 ML VIAL IVPB PRN (12:14)
--- NOTE | 2016-06-09 12:22 | PN ---
Physical Exam: SUBJECTIVE: Patient seen and examined, patient reports feeling well reports tenderness to surgical site denies any nausea or vomiting, ambulatory throughout nursing unit OBJECTIVE: patient is a 26 y/o female, PMHx of gastritis, gastroparesis, anxiety/panic disorder, who presented to the ED with abdominal pain, nausea, vomiting, diarrhea, and was found to have intussception, pt is s/p ex lap, small bowel resection Vital Signs Period Temp Pulse Resp BP Sys/Mario Pulse Ox Last 24 Hr 97.7 F-98.8 F 70-101 16-18 102-114/52-67 97-98 GENERAL: The patient is awake, alert, and fully oriented, in no acute distress. HEAD: Normal with no signs of trauma. EYES: PERRL, extraocular movements intact, sclera anicteric, conjunctiva clear. No ptosis. ENT: Ears normal, nares patent, oropharynx clear without exudates, moist mucous membranes. NECK: Trachea midline, full range of motion, supple. LUNGS: Breath sounds equal, clear to auscultation bilaterally, no wheezes, no crackles, no accessory muscle use. HEART: Regular rate and rhythm, S1, S2 without murmur, rub or gallop. ABDOMEN: Soft, nontender, nondistended, positive hypoactive bowel sounds in all 4 quadrants, surgical site clean dry and intact, well approximated no erythema noted, no guarding, no rebound, no hepatosplenomegaly, no masses. EXTREMITIES: 2+ pulses, warm, well-perfused, no edema. NEUROLOGICAL: Cranial nerves II through XII grossly intact. Normal speech, gait not observed. PSYCH: Normal mood, normal affect. SKIN: Warm, dry, normal turgor, no rashes or lesions noted Laboratory Results - last 24 hr 06/08/16 06/09/16 06/09/16 15:40 09:40 09:40 WBC 12.5 H RBC 3.89 Hgb 11.1 D Hct 33.7 D MCV 86.5 MCHC 32.8 RDW 11.9 Plt Count 347 D MPV 8.2 Neutrophils % 76.0 Lymphocytes % 16.9 D Monocytes % 6.9 Eosinophils % 0.1 D Basophils % 0.1 Sodium 136 Potassium 3.8 Chloride 100 Carbon Dioxide 27 Anion Gap 9 BUN 5 L D Creatinine 0.5 L Creat Clearance w eGFR > 60 Random Glucose 101 D Lactic Acid 2.210 H* Calcium 8.4 Phosphorus 2.5 Magnesium 1.8 Total Bilirubin 0.5 D AST 25 D ALT 15 Alkaline Phosphatase 49 D Total Protein 6.1 L Albumin 2.7 L D 06/09/16 09:40 WBC RBC Hgb Hct MCV MCHC RDW Plt Count MPV Neutrophils % Lymphocytes % Monocytes % Eosinophils % Basophils % Sodium Potassium Chloride Carbon Dioxide Anion Gap BUN Creatinine Creat Clearance w eGFR Random Glucose Lactic Acid 0.736 Calcium Phosphorus Magnesium Total Bilirubin AST ALT Alkaline Phosphatase Total Protein Albumin Active Medications Generic Name Dose Route Start Last Admin Trade Name Freq PRN Reason Stop Dose Admin Acetaminophen 650 mg 06/07/16 20:22 Tylenol - PO Q4H PRN FEVER OR PAIN Ceftriaxone Sodium 1 gm 06/08/16 10:00 06/09/16 09:56 Rocephin 1gm Ivpb (Pre-Docked) IVPB 1 gm DAILY GUERDA Administration Enoxaparin Sodium 40 mg 06/08/16 10:00 06/09/16 10:02 Lovenox - SQ 40 mg DAILY GUERDA Administration Escitalopram Oxalate 20 mg 06/08/16 10:00 06/09/16 09:57 Lexapro - PO 20 mg DAILY GUERDA Administration Fentanyl 50 mcg 06/07/16 21:29 Sublimaze Injection - IVPUSH 06/10/16 21:30 [id number] PRN Pantoprazole Sodium 100 mls @ 200 mls/hr 06/08/16 10:00 06/09/16 10:01 Protonix 40mg Ivpb (Pre-Docked) IVPB 200 mls/hr DAILY GUERDA Administration Metronidazole 100 mls @ 100 mls/hr 06/08/16 10:00 06/09/16 10:03 Flagyl 500mg Premixed Ivpb - IVPB 100 mls/hr Q6H-IV GUERDA Administration Ibuprofen 800 mg 06/07/16 19:54 Caldolor Injection - IVPB ONCE PRN PAIN Morphine Sulfate 4 mg 06/08/16 16:13 06/09/16 11:44 Morphine Injection - IVPUSH 4 mg Q3H PRN Administration PAIN Ondansetron HCl 4 mg 06/07/16 20:22 06/09/16 12:14 Zofran Injection IVPB 4 mg Q6H PRN Administration NAUSEA Oxycodone HCl 10 mg 06/08/16 16:22 06/08/16 22:37 Roxicodone - PO 10 mg Q3H PRN Administration SEVERE PAIN ASSESSMENT/PLAN: 1) GI: Intussception s/p exploratory laparotomy, small bowel resection on 06/07 - NPO except for ice chips - when necessary pain medication - Incentive spirometer - Continue Rocephin and Flagyl empirically - leukocytosis improving patient afebrile - lactic acid level wnl, - surgery following consult 2) psych - restart lexapro, pmh of depression F/E/N: - NPO - IV fluids 3) Prophylaxis: - Lovenox sq daily 4) Dispo: - Requires continued inpatient care CODE STATUS: FULL CODE Visit type - Emergency Visit Emergency Visit: Yes ED Registration Date: 06/07/16 Care time: The patient presented to the Emergency Department on the above date and was hospitalized for further evaluation of their emergent condition. - New Patient This patient is new to me today: Yes Date on this admission: 06/09/16 - Critical Care Critical Care patient: No - Discharge Referral Referred to [facility] Med P.C.: No
[2016-06-09] MEDS ORDERED: DEXTROSE 5%-NORMAL SALINE 1,000 ML IV SCH (12:45)
--- NOTE | 2016-06-09 12:47 | PN ---
Progress Note (short form) - Note Progress Note: surgery pt seen and examined. less pain. today. some nausea after morphine. no flatus. 4L u/o. voiding afebrile abd- soft, mild distension, incision clean, mild generalized tenderness Laboratory Tests 06/09/16 06/09/16 06/09/16 09:40 09:40 09:40 WBC 12.5 H Sodium 136 Potassium 3.8 Lactic Acid 0.736 A/P 1) Pod#2- cont npo, ivf, 2) sepsis- (HR>90, wbc 19, bacterial source from compromised bowel)- start rocephin, flagyl, wbc improving and LA normal as expected. 3) pain- on motrin, prn morphine, prn oxycodone. try to reduce morphine 4) intussucception- polyp located as lead point. histology pending 5) prophylaxis- protonix. oob, spirometer, lovenox 6) will give NS to raise Na level above 140, will add k. 7) hypomagnesemia- resolved 8) lactic acidosis- from sepis and compromised bowel- resolved
[2016-06-09] MEDS: PANTOPRAZOLE 40 MG TABLET (FP) PO SCH (12:49)
[2016-06-09] MEDS: DEXTROSE 5%-NORMAL SALINE 1,000 ML with POTASSIUM CHLORIDE 10 MEQ IVPB SCH (13:30)
[2016-06-10] MEDS: morphine CARPU-JECT 4 MG/1 ML DISP.SYRIN IVPUSH PRN (00:11)
[2016-06-10] MEDS: METRONIDAZOLE 500 MG PREMIXED 100 ML IVPB SCH ×4 (03:08→20:08)
[2016-06-10] MEDS: DEXTROSE 5%-NORMAL SALINE 1,000 ML with POTASSIUM CHLORIDE 10 MEQ IVPB SCH (06:08)
[2016-06-10] MEDS: oxyCODONE HCL 5 MG TABLET PO PRN ×4 (07:52→23:32)
--- NOTE | 2016-06-10 08:45 | PN ---
Physical Exam: SUBJECTIVE: Patient seen and examined, reports soreness to incision site denies any flatulence OBJECTIVE: patient is a 26 y/o female, PMHx of gastritis, gastroparesis, anxiety/panic disorder, who presented to the ED with abdominal pain, nausea, vomiting, diarrhea, and was found to have intussception, pt is s/p ex lap, small bowel resection Vital Signs Period Temp Pulse Resp BP Sys/Mario Pulse Ox Last 24 Hr 98.3 F-99.2 F 94-106 16-18 105-114/68-68 97-100 physical examination GENERAL: The patient is awake, alert, and fully oriented, in no acute distress. HEAD: Normal with no signs of trauma. EYES: PERRL, extraocular movements intact, sclera anicteric, conjunctiva clear. No ptosis. ENT: Ears normal, nares patent, oropharynx clear without exudates, moist mucous membranes. NECK: Trachea midline, full range of motion, supple. LUNGS: Breath sounds equal, clear to auscultation bilaterally, no wheezes, no crackles, no accessory muscle use. HEART: Regular rate and rhythm, S1, S2 without murmur, rub or gallop. ABDOMEN: Soft, nontender, nondistended, positive hypoactive bowel sounds in all 4 quadrants, surgical site clean dry and intact, well approximated no erythema noted, no guarding, no rebound, no hepatosplenomegaly, no masses. EXTREMITIES: 2+ pulses, warm, well-perfused, no edema. NEUROLOGICAL: Cranial nerves II through XII grossly intact. Normal speech, gait not observed. PSYCH: Normal mood, normal affect. SKIN: Warm, dry, normal turgor, no rashes or lesions noted Laboratory Results - last 24 hr 06/09/16 06/09/16 06/09/16 09:40 09:40 09:40 WBC 12.5 H RBC 3.89 Hgb 11.1 D Hct 33.7 D MCV 86.5 MCHC 32.8 RDW 11.9 Plt Count 347 D MPV 8.2 Neutrophils % 76.0 Lymphocytes % 16.9 D Monocytes % 6.9 Eosinophils % 0.1 D Basophils % 0.1 Sodium 136 Potassium 3.8 Chloride 100 Carbon Dioxide 27 Anion Gap 9 BUN 5 L D Creatinine 0.5 L Creat Clearance w eGFR > 60 Random Glucose 101 D Lactic Acid 0.736 Calcium 8.4 Phosphorus 2.5 Magnesium 1.8 Total Bilirubin 0.5 D AST 25 D ALT 15 Alkaline Phosphatase 49 D Total Protein 6.1 L Albumin 2.7 L D Active Medications Generic Name Dose Route Start Last Admin Trade Name Freq PRN Reason Stop Dose Admin Acetaminophen 650 mg 06/07/16 20:22 Tylenol - PO Q4H PRN FEVER OR PAIN Ceftriaxone Sodium 1 gm 06/08/16 10:00 06/09/16 09:56 Rocephin 1gm Ivpb (Pre-Docked) IVPB 1 gm DAILY GUERDA Administration Enoxaparin Sodium 40 mg 06/08/16 10:00 06/09/16 10:02 Lovenox - SQ 40 mg DAILY GUERDA Administration Escitalopram Oxalate 20 mg 06/08/16 10:00 06/09/16 09:57 Lexapro - PO 20 mg DAILY GUERDA Administration Fentanyl 50 mcg 06/07/16 21:29 Sublimaze Injection - IVPUSH 06/10/16 21:30 [id number] PRN Metronidazole 100 mls @ 100 mls/hr 06/08/16 10:00 06/10/16 03:08 Flagyl 500mg Premixed Ivpb - IVPB 100 mls/hr Q6H-IV GUERDA Administration Potassium Chloride 10 meq/ 1,005 mls @ 75 mls/hr 06/09/16 13:30 06/10/16 06:08 Dextrose/Sodium Chloride IVPB 75 mls/hr Q13H GUERDA Administration Ibuprofen 800 mg 06/07/16 19:54 Caldolor Injection - IVPB ONCE PRN PAIN Morphine Sulfate 4 mg 06/08/16 16:13 06/10/16 00:11 Morphine Injection - IVPUSH 4 mg Q3H PRN Administration PAIN Ondansetron HCl 4 mg 06/07/16 20:22 06/09/16 12:14 Zofran Injection IVPB 4 mg Q6H PRN Administration NAUSEA Oxycodone HCl 10 mg 06/08/16 16:22 06/10/16 07:52 Roxicodone - PO 10 mg Q3H PRN Administration SEVERE PAIN Pantoprazole Sodium 40 mg 06/09/16 12:45 06/09/16 12:49 Protonix - PO Not Given DAILY GUERDA Microbiology 06/08/16 16:35 Blood - Peripheral Venous Blood Culture - Preliminary NO GROWTH OBTAINED AFTER 24 HOURS, INCUBATION TO CONTINUE FOR 4 DAYS. ASSESSMENT/PLAN: 1) GI: Intussception s/p exploratory laparotomy, small bowel resection on 06/07 - continue NPO except for ice chips - when necessary pain medication - Incentive spirometer, encourage ambulation - Continue Rocephin and Flagyl empirically - leukocytosis trending downwards, patient afebrile - lactic acid level wnl, - surgery following consult 2) psych - restart lexapro, pmh of depression F/E/N: - NPO - start climinix with lipids 3) Prophylaxis: - Lovenox sq daily 4) Dispo: - Requires continued inpatient care CODE STATUS: FULL CODE Visit type - Emergency Visit Emergency Visit: Yes ED Registration Date: 06/07/16 Care time: The patient presented to the Emergency Department on the above date and was hospitalized for further evaluation of their emergent condition. - New Patient This patient is new to me today: No - Critical Care Critical Care patient: No - Discharge Referral Referred to [facility] Med P.C.: No
[2016-06-10 09:08] LABS: BASOPHIL 0.4 % (0-2.0); EOSINOPHIL 0.3 % (0-4.5); MCH 27.9 pg (25.7-33.7); MCHC 32.3 g/dl (32.0-36.0); MEAN CELL VOLUME 86.3 fl (80-96); NEUTROPHILS 79.3 % (42.8-82.8); PLATELET COUNT 308 K/MM3 (134-434); RDW 11.4 % (11.6-15.6); WHITE BLOOD COUNT 11.7 K/mm3 (4.0-10.0)
[2016-06-10 09:39] LABS: ANION GAP 9 (8-16); CALCIUM 8.4 mg/dl (8.4-10.2); CO2 29 mmol/L (22-28); CREATININE 0.5 mg/dl (0.6-1.3); GLUCOSE,RANDOM 102 mg/dl (74-106); MAGNESIUM 1.6 mg/dL (1.8-2.4); PHOSPHOROUS 3.1 mg/dl (2.5-4.6)
[2016-06-10] MEDS ORDERED: MAGNESIUM SULFATE 2 GM in SODIUM CHLORIDE 100 ML IVPB ONE (10:36)
[2016-06-10] MEDS: cefTRIAXone 1 GM/50 ML BAG (PRE-DOCKED) IVPB SCH (10:53)
[2016-06-10] MEDS: PANTOPRAZOLE 40 MG TABLET (FP) PO SCH (10:53)
[2016-06-10] MEDS: ESCITALOPRAM OXALATE 20 MG TABLET (FP) PO SCH (10:53)
[2016-06-10] MEDS: ENOXAPARIN NA (PORCINE) 40 MG/0.4 ML DISP.SYRIN SQ SCH (10:54)
[2016-06-10] MEDS ORDERED: MAGNESIUM SULF 50% (8.12 MEQ/2 ML-1 GM VIAL) IVPB ONE (11:30)
[2016-06-10] MEDS: [UNRECOGNIZED DRUG - OTHER] IVPB SCH (12:11)
[2016-06-10] MEDS: AMINO ACIDS IVPB SCH (12:11)
[2016-06-10] MEDS: POTASSIUM CHLORIDE IVPB SCH (12:11)
[2016-06-10] MEDS: MAGNESIUM SULFATE IVPB SCH (12:11)
--- NOTE | 2016-06-10 15:46 | PN ---
Progress Note (short form) - Note Progress Note: surgery pt seen and examined. feels better. oob bed. no longer using morphine. not hungry. no flatus afebrile abd- soft, mild distension, incision clean, minimal tenderness Laboratory Tests 06/10/16 06/10/16 07:57 07:57 WBC 11.7 H Magnesium 1.6 L A/P 1) Pod#3- cont npo, ivf, 2) sepsis- resolving. wbc nearly normal. cont iv abx. 3) pain- on motrin, prn morphine, prn oxycodone. cont to try to reduce morphine 4) intussucception- polyp located as lead point. histology/pathology pending 5) prophylaxis- protonix. oob, spirometer, lovenox 6) will give NS to raise Na level above 140, will add k. 7) hypomagnesemia- will replace again 8) lactic acidosis- from sepis and compromised bowel- resolved
[2016-06-10] MEDS: FAT EMULSIONS 20% 250 ML PREMIX INFUS.BAG IV SCH (22:06)
[2016-06-11] MEDS: METRONIDAZOLE 500 MG PREMIXED 100 ML IVPB SCH ×4 (03:17→20:28)
[2016-06-11] MEDS: MAGNESIUM SULFATE IVPB SCH ×2 (03:17→16:03)
[2016-06-11] MEDS: POTASSIUM CHLORIDE IVPB SCH ×2 (03:17→16:03)
[2016-06-11] MEDS: AMINO ACIDS IVPB SCH ×2 (03:17→16:03)
[2016-06-11] MEDS: [UNRECOGNIZED DRUG - OTHER] IVPB SCH ×2 (03:17→16:03)
[2016-06-11 08:27] LABS: BASOPHIL 0.3 % (0-2.0); EOSINOPHIL 1.2 % (0-4.5); MCH 28.3 pg (25.7-33.7); MCHC 32.5 g/dl (32.0-36.0); MEAN CELL VOLUME 87.1 fl (80-96); MEAN PLT VOLUME 7.7 fl (7.5-11.1); NEUTROPHILS 66.7 % (42.8-82.8); PLATELET COUNT 321 K/MM3 (134-434); RDW 11.4 % (11.6-15.6); WHITE BLOOD COUNT 7.9 K/mm3 (4.0-10.0)
[2016-06-11 08:36] LABS: ALBUMIN 2.4 g/dl (3.5-5.0); ALK PHOS 54 U/L (32-92); ANION GAP 8 (8-16); BILIRUBIN,TOTAL 0.3 mg/dl (0.2-1.0); CO2 28 mmol/L (22-28); CREATININE 0.5 mg/dl (0.6-1.3); GLUCOSE,RANDOM 107 mg/dl (74-106); MAGNESIUM 1.9 mg/dL (1.8-2.4); PHOSPHOROUS 3.4 mg/dl (2.5-4.6); SGOT/AST 17 U/L (10-42); SGPT/ALT 13 U/L (10-40); TOT PROT 5.5 g/dl (6.4-8.3)
[2016-06-11] MEDS: oxyCODONE HCL 5 MG TABLET PO PRN ×2 (09:40→22:14)
[2016-06-11] MEDS: cefTRIAXone 1 GM/50 ML BAG (PRE-DOCKED) IVPB SCH (09:40)
[2016-06-11] MEDS: PANTOPRAZOLE 40 MG TABLET (FP) PO SCH (09:41)
[2016-06-11] MEDS: ESCITALOPRAM OXALATE 20 MG TABLET (FP) PO SCH (09:41)
[2016-06-11] MEDS: ENOXAPARIN NA (PORCINE) 40 MG/0.4 ML DISP.SYRIN SQ SCH (09:41)
[2016-06-11] MEDS ORDERED: morphine CARPU-JECT 2 MG/1 ML DISP.SYRIN IVPUSH PRN (12:48)
--- NOTE | 2016-06-11 12:49 | PN ---
[id number] OBJECTIVE: patient is a 26 y/o female, PMHx of gastritis, gastroparesis, anxiety/panic disorder, who presented to the ED with abdominal pain, nausea, vomiting, diarrhea, and was found to have intussception, pt is s/p ex lap, small bowel resection Vital Signs Period Temp Pulse Resp BP Sys/Mario Pulse Ox Last 24 Hr 98.5 F-99.2 F 80-94 16-19 99-105/61-64 96-97 GENERAL: The patient is awake, alert, and fully oriented, in no acute distress. HEAD: Normal with no signs of trauma. EYES: PERRL, extraocular movements intact, sclera anicteric, conjunctiva clear. No ptosis. ENT: Ears normal, nares patent, oropharynx clear without exudates, moist mucous membranes. NECK: Trachea midline, full range of motion, supple. LUNGS: Breath sounds equal, clear to auscultation bilaterally, no wheezes, no crackles, no accessory muscle use. HEART: Regular rate and rhythm, S1, S2 without murmur, rub or gallop. ABDOMEN: Soft, nontender, nondistended, positive hypoactive bowel sounds in all 4 quadrants, surgical site clean dry and intact, well approximated no erythema noted, no guarding, no rebound, no hepatosplenomegaly, no masses. EXTREMITIES: 2+ pulses, warm, well-perfused, no edema. NEUROLOGICAL: Cranial nerves II through XII grossly intact. Normal speech, gait not observed. PSYCH: Normal mood, normal affect. SKIN: Warm, dry, normal turgor, no rashes or lesions noted Laboratory Results - last 24 hr 06/11/16 06/11/16 07:30 07:30 WBC 7.9 D RBC 3.52 L Hgb 10.0 L Hct 30.6 L MCV 87.1 MCHC 32.5 RDW 11.4 L Plt Count 321 MPV 7.7 Neutrophils % 66.7 Lymphocytes % 21.2 D Monocytes % 10.6 H Eosinophils % 1.2 D Basophils % 0.3 Sodium 135 L Potassium 3.5 Chloride 99 Carbon Dioxide 28 Anion Gap 8 BUN 8 D Creatinine 0.5 L Creat Clearance w eGFR > 60 Random Glucose 107 H Calcium 8.0 L Phosphorus 3.4 Magnesium 1.9 Total Bilirubin 0.3 D AST 17 D ALT 13 Alkaline Phosphatase 54 Total Protein 5.5 L Albumin 2.4 L Active Medications Generic Name Dose Route Start Last Admin Trade Name Freq PRN Reason Stop Dose Admin Acetaminophen 650 mg 06/07/16 20:22 Tylenol - PO Q4H PRN FEVER OR PAIN Ceftriaxone Sodium 1 gm 06/08/16 10:00 06/11/16 09:40 Rocephin 1gm Ivpb (Pre-Docked) IVPB 1 gm DAILY GUERDA Administration Enoxaparin Sodium 40 mg 06/08/16 10:00 06/11/16 09:41 Lovenox - SQ 40 mg DAILY GUERDA Administration Escitalopram Oxalate 20 mg 06/08/16 10:00 06/11/16 09:41 Lexapro - PO 20 mg DAILY GUERDA Administration Fat Emulsion Intravenous 250 ml 06/10/16 22:00 06/10/16 22:06 Intralipid - IV 250 ml DAILY@2200 GUERDA Administration Metronidazole 100 mls @ 100 mls/hr 06/08/16 10:00 06/11/16 09:40 Flagyl 500mg Premixed Ivpb - IVPB 100 mls/hr Q6H-IV GUERDA Administration Magnesium Sulfate 1 gm/ 1,012 mls @ 84 mls/hr 06/10/16 12:00 06/11/16 03:17 Potassium Chloride 20 meq/ IVPB 84 mls/hr Amino Acids Q12H GUERDA Administration Ibuprofen 800 mg 06/07/16 19:54 Caldolor Injection - IVPB ONCE PRN PAIN Morphine Sulfate 2 mg 06/11/16 12:48 Morphine Injection - IVPUSH Q6H PRN PAIN Ondansetron HCl 4 mg 06/07/16 20:22 06/09/16 12:14 Zofran Injection IVPB 4 mg Q6H PRN Administration NAUSEA Oxycodone HCl 5 mg 06/11/16 12:47 Roxicodone - PO Q4H PRN PAIN Pantoprazole Sodium 40 mg 06/09/16 12:45 06/11/16 09:41 Protonix - PO 40 mg DAILY GUERDA Administration Microbiology 06/08/16 16:35 Blood - Peripheral Venous Blood Culture - Preliminary NO GROWTH OBTAINED AFTER 48 HOURS, INCUBATION TO CONTINUE FOR 3 DAYS. ASSESSMENT/PLAN: 1) GI: Intussception s/p exploratory laparotomy, small bowel resection on 06/07 - start on clears as per surgery - prn pain medication - Incentive spirometer, encourage ambulation - Continue Rocephin and Flagyl empirically - leukocytosis resolved, patient afebrile - surgery consulted and following (Pau) 2) psych - continue lexapro, pmh of depression F/E/N: - clear liquid diet - continue climinix with lipids 3) Prophylaxis: - Lovenox sq daily 4) Dispo: - Requires continued inpatient care CODE STATUS: FULL CODE Visit type - Emergency Visit Emergency Visit: Yes ED Registration Date: 06/07/16 Care time: The patient presented to the Emergency Department on the above date and was hospitalized for further evaluation of their emergent condition. - New Patient This patient is new to me today: No - Critical Care Critical Care patient: No - Discharge Referral Referred to [facility] Med P.C.: No
--- NOTE | 2016-06-11 14:52 | PN ---
Progress Note (short form) - Note Progress Note: surgery pt seen and examined. feels well. still no flatus. hungry. afebrile abd- soft, minimal distension, incision clean, nt Laboratory Tests 06/11/16 07:30 WBC 7.9 D Laboratory Tests 06/11/16 07:30 Sodium 135 L Potassium 3.5 A/P 1) Pod#4- clear liquids, cont ivf, 2) sepsis- resolving. wbc now normal. cont iv abx until tomorrow. 3) pain- on motrin, prn morphine, prn oxycodone. cont to try to reduce morphine 4) intussucception- polyp located as lead point. histology/pathology pending 5) prophylaxis- protonix. oob, spirometer, lovenox 6) will give NS to raise Na level above 140, cont k. 7) hypomagnesemia- resolved 8) lactic acidosis- from sepis and compromised bowel- resolved
--- NOTE | 2016-06-11 15:04 | PATH ---
Surgical Pathology Report Patient Name: DARELL RODRIGUEZ Med. Rec. #: [id number] /Age/Gender: 1990 (Age: 26) / F Account: [id number] Location: [facility] MED-SURG Taken: 06/07/2016 Received: 06/07/2016 Reported: 06/11/2016 Physicians: Narinder Mai M.D. Specimen(s) Received PORTION OF SMALL BOWEL WITH INTUSSUSCEPTION Clinical History Small bowel obstruction Final Diagnosis Small bowel, segmental resection: Small bowel with benign polyp MOST consistent with inflammatory fibroid polyp with extensive ulceration. Associated intussusception with mucosal hemorrhage, ischemia, and necrosis present. Thinning of muscularis propria, and grossly noted area of stricture are present Proximal and distal margins free of lesion. twenty-five (25) benign mesenteric lymph nodes identified. Comment: Sections of the polyp reveal a proliferation of bland spindle cells with inflammatory cells in the background. Immunohistochemical stains performed at [place], [place] ([id number]) and interpreted at [facility] show the following results: the spindle cells stain with vimentin, and focally with CD34. Stains for ALK-1, BCL-1, calponin, CD117, DOG 1, fascin, and SMA are negative. The histologic and immunophenotypic findings are most consistent with a benign inflammatory fibroid polyp. Electronically Signed Eduard Anderson M.D. Gross Description Received in formalin, labeled "portion of small bowel with intussusception," is a 45 cm in length focally dilated and knotted portion of small bowel with 2 open mucosal margins and moderate attached adipose tissue. The serosa is chanel-elmore and focally dusky. Sectioning reveals a focal 15 cm in length red, dusky telescoping of the small bowel in area of the dilatation as well as a focal stricture. There is a 2.8 x 2.4 x 1.7 cm polypoid lesion at the stricture. The polyp is at 8.5 cm from the closest mucosal margin. No definite invasion of the polyp is identified grossly. The mucosa of the intussuscepted bowel is red brown and dusky with flattened folds. The remaining mucosa displays focally flattened folds. Sectioning of the attached fat reveals abundant chanel lymph nodes. Bank Reconciliator sections are submitted in 23 cassettes as follows: 1-mucosal margin closest to mass; 2-farther mucosal margin; 5-9-xdjqltin and sequentially submitted polypoid mass; 9-sections from stricture in between polyp and closest mucosal margin; 30-15-uckozoiq from dusky intussuscepted bowel; 55-40-zqxkoosolf telephone service representative mucosa; 82-66-onmfktaf whole lymph nodes. 06/09/201606/09/2016
[2016-06-11] MEDS: POTASSIUM CHLORIDE TABS 20 MEQ TABLET.ER (FP) PO SCH ×2 (16:03→20:28)
[2016-06-11] MEDS: ONDANSETRON 4 MG/2 ML VIAL IVPB PRN ×2 (17:16→22:01)
[2016-06-11] MEDS: FAT EMULSIONS 20% 250 ML PREMIX INFUS.BAG IV SCH (22:14)
[2016-06-11] MEDS: ACETAMINOPHEN 325 MG TABLET (FP) PO PRN (22:14)
[2016-06-12] MEDS: POTASSIUM CHLORIDE IVPB SCH ×2 (00:05→12:16)
[2016-06-12] MEDS: [UNRECOGNIZED DRUG - OTHER] IVPB SCH ×2 (00:05→12:16)
[2016-06-12] MEDS: MAGNESIUM SULFATE IVPB SCH ×2 (00:05→12:16)
[2016-06-12] MEDS: AMINO ACIDS IVPB SCH ×2 (00:05→12:16)
[2016-06-12] MEDS: POTASSIUM CHLORIDE TABS 20 MEQ TABLET.ER (FP) PO SCH (00:07)
[2016-06-12] MEDS: METRONIDAZOLE 500 MG PREMIXED 100 ML IVPB SCH ×4 (03:06→20:22)
[2016-06-12] MEDS: ONDANSETRON 4 MG/2 ML VIAL IVPB PRN ×3 (05:15→14:53)
[2016-06-12] MEDS: oxyCODONE HCL 5 MG TABLET PO PRN (08:14)
[2016-06-12] MEDS: cefTRIAXone 1 GM/50 ML BAG (PRE-DOCKED) IVPB SCH (09:33)
[2016-06-12] MEDS: PANTOPRAZOLE 40 MG TABLET (FP) PO SCH (09:34)
[2016-06-12] MEDS: ENOXAPARIN NA (PORCINE) 40 MG/0.4 ML DISP.SYRIN SQ SCH (09:35)
[2016-06-12] MEDS: ESCITALOPRAM OXALATE 20 MG TABLET (FP) PO SCH (09:35)
--- NOTE | 2016-06-12 15:33 | PN ---
[id number]: patient is a 26 y/o female, PMHx of gastritis, gastroparesis, anxiety/panic disorder, who presented to the ED with abdominal pain, nausea, vomiting, diarrhea, and was found to have intussception, pt is s/p ex lap, small bowel resection Vital Signs Period Temp Pulse Resp BP Sys/Mario Pulse Ox Last 24 Hr 98.3 F-100 F 78-84 17-18 108-116/63-72 99-100 GENERAL: The patient is awake, alert, and fully oriented, in no acute distress. HEAD: Normal with no signs of trauma. EYES: PERRL, extraocular movements intact, sclera anicteric, conjunctiva clear. No ptosis. ENT: Ears normal, nares patent, oropharynx clear without exudates, moist mucous membranes. NECK: Trachea midline, full range of motion, supple. LUNGS: Breath sounds equal, clear to auscultation bilaterally, no wheezes, no crackles, no accessory muscle use. HEART: Regular rate and rhythm, S1, S2 without murmur, rub or gallop. ABDOMEN: Soft, nontender, nondistended, hypoactive bowel sounds, no guarding, no rebound, no hepatosplenomegaly, no masses.surgical site clean dry and intact well approximated no erythema point tenderness noted EXTREMITIES: 2+ pulses, warm, well-perfused, no edema. NEUROLOGICAL: Cranial nerves II through XII grossly intact. Normal speech, gait not observed. PSYCH: Normal mood, normal affect. SKIN: Warm, dry, normal turgor, no rashes or lesions noted Active Medications Generic Name Dose Route Start Last Admin Trade Name Brianq PRN Reason Stop Dose Admin Acetaminophen 650 mg 06/07/16 20:22 06/11/16 22:14 Tylenol - PO 650 mg Q4H PRN Administration FEVER OR PAIN Ceftriaxone Sodium 1 gm 06/08/16 10:00 06/12/16 09:33 Rocephin 1gm Ivpb (Pre-Docked) IVPB 1 gm DAILY GUERDA Administration Enoxaparin Sodium 40 mg 06/08/16 10:00 06/12/16 09:35 Lovenox - SQ 40 mg DAILY GUERDA Administration Escitalopram Oxalate 20 mg 06/08/16 10:00 06/12/16 09:35 Lexapro - PO 20 mg DAILY GUERDA Administration Fat Emulsion Intravenous 250 ml 06/10/16 22:00 06/11/16 22:14 Intralipid - IV 250 ml DAILY@2200 GUERDA Administration Metronidazole 100 mls @ 100 mls/hr 06/08/16 10:00 06/12/16 14:54 Flagyl 500mg Premixed Ivpb - IVPB 100 mls/hr Q6H-IV GUERDA Administration Magnesium Sulfate 1 gm/ 1,012 mls @ 84 mls/hr 06/10/16 12:00 06/12/16 12:16 Potassium Chloride 20 meq/ IVPB 84 mls/hr Amino Acids Q12H GUERDA Administration Ibuprofen 800 mg 06/07/16 19:54 Caldolor Injection - IVPB ONCE PRN PAIN Morphine Sulfate 2 mg 06/11/16 12:48 Morphine Injection - IVPUSH Q6H PRN PAIN Ondansetron HCl 4 mg 06/07/16 20:22 06/12/16 14:53 Zofran Injection IVPB 4 mg Q6H PRN Administration NAUSEA Oxycodone HCl 5 mg 06/11/16 12:47 06/12/16 08:14 Roxicodone - PO 5 mg Q4H PRN Administration PAIN Pantoprazole Sodium 40 mg 06/09/16 12:45 06/12/16 09:34 Protonix - PO 40 mg DAILY GUERDA Administration Microbiology 06/08/16 16:35 Blood - Peripheral Venous Blood Culture - Preliminary NO GROWTH OBTAINED AFTER 72 HOURS, INCUBATION TO CONTINUE FOR 2 DAYS. ASSESSMENT/PLAN: 1) GI: Intussception s/p exploratory laparotomy, small bowel resection on 06/07 - tolerating clears advanced to full liquid - prn pain medication - continue Incentive spirometer, encourage ambulation - Continue Rocephin and Flagyl empirically - surgery consulted and following (Pau) 2) psych - continue lexapro, pmh of depression F/E/N: - full liquid diet - continue climinix with lipids -->d/c tommorow if tolerating 3) Prophylaxis: - Lovenox sq daily 4) Dispo: - Requires continued inpatient care CODE STATUS: FULL CODE Visit type - Emergency Visit Emergency Visit: Yes ED Registration Date: 06/07/16 Care time: The patient presented to the Emergency Department on the above date and was hospitalized for further evaluation of their emergent condition. - New Patient This patient is new to me today: No - Critical Care Critical Care patient: No - Discharge Referral Referred to [facility] Med P.C.: No
[2016-06-12] MEDS: ACETAMINOPHEN 325 MG TABLET (FP) PO PRN (20:19)
[2016-06-12] MEDS: FAT EMULSIONS 20% 250 ML PREMIX INFUS.BAG IV SCH (23:50)
[2016-06-13] MEDS: oxyCODONE HCL 5 MG TABLET PO PRN (00:01)
[2016-06-13] MEDS: MAGNESIUM SULFATE IVPB SCH (00:02)
[2016-06-13] MEDS: POTASSIUM CHLORIDE IVPB SCH (00:02)
[2016-06-13] MEDS: [UNRECOGNIZED DRUG - OTHER] IVPB SCH (00:02)
[2016-06-13] MEDS: AMINO ACIDS IVPB SCH (00:02)
[2016-06-13] MEDS: METRONIDAZOLE 500 MG PREMIXED 100 ML IVPB SCH ×2 (02:08→08:30)
[2016-06-13] MEDS: cefTRIAXone 1 GM/50 ML BAG (PRE-DOCKED) IVPB SCH (10:21)
[2016-06-13] MEDS: ESCITALOPRAM OXALATE 20 MG TABLET (FP) PO SCH (10:22)
[2016-06-13] MEDS: ENOXAPARIN NA (PORCINE) 40 MG/0.4 ML DISP.SYRIN SQ SCH (10:22)
[2016-06-13] MEDS: PANTOPRAZOLE 40 MG TABLET (FP) PO SCH (10:22)
--- NOTE | 2016-06-13 13:35 | DS ---
Physical Exam: SUBJECTIVE: Patient seen and examined, reports feeling well, denies any nausea or vomiting, tolerating soft diet. OBJECTIVE: Patient is a 26 y/o female with a past medical history gastritis ( thought to be secondary to NSAID use and endoscopically diagnosed), gastroparesis, and anxiety/panic disorder. Who presents to the ED with mid- abdominal pain radiating to the back, diarrhea, and multiple episodes of vomiting. Patient describes the mid-abdominal pain as stabbing and 20/10 in severity. She states she has never experienced this pain in the past. Patient says she ate a salad with chicken last night and has not been able to eat anything since. Patient denies fever, chills, constipation, hematochezia, dysuria, hematuria. Patient denies smoking, marijuana use. ER course was notable for: (1) WBC 17.5, Neutrophils 84.1 (2) CTAP- There is intussusception in a segment of small bowel in the lower abdomen and pelvis Vital Signs Period Temp Pulse Resp BP Sys/Mario Pulse Ox Last 24 Hr 98.6 F-99.3 F 77-85 17-18 99-116/60-72 99-100 PHYSICAL EXAM GENERAL: The patient is awake, alert, and fully oriented, in no acute distress. HEAD: Normal with no signs of trauma. EYES: PERRL, extraocular movements intact, sclera anicteric, conjunctiva clear. No ptosis. ENT: Ears normal, nares patent, oropharynx clear without exudates, moist mucous membranes. NECK: Trachea midline, full range of motion, supple. LUNGS: Breath sounds equal, clear to auscultation bilaterally, no wheezes, no crackles, no accessory muscle use. HEART: Regular rate and rhythm, S1, S2 without murmur, rub or gallop. ABDOMEN: Soft, nontender, nondistended, hypoactive bowel sounds, no guarding, no rebound, no hepatosplenomegaly, no masses.surgical site clean dry and intact well approximated no erythema point tenderness noted EXTREMITIES: 2+ pulses, warm, well-perfused, no edema. NEUROLOGICAL: Cranial nerves II through XII grossly intact. Normal speech, gait not observed. PSYCH: Normal mood, normal affect. SKIN: Warm, dry, normal turgor, no rashes or lesions noted LABS CBC, BMP 06/11/16 07:30 06/11/16 07:30 Microbiology 06/08/16 16:35 Blood - Peripheral Venous Blood Culture - Final NO GROWTH AFTER 5 DAYS INCUBATION HOSPITAL COURSE: Patient was admitted for Intussception. On 06/07/16, she underwent a exploratory laparotomy, small bowel resection (Pau). Postoperatively, lactic acid was elevated, she was treated with IV fluid hydration and lactic acid return to normal limits. In addition, rocephin and flagyl was given empirically. Patient was in moderate pain on post op day 1, she was started on dilaudid lifter driver for post op day 1 and 2. patient was started on climinix on post op day 3. She was started on clear liquid diet on post day 4 then advance to soft diet. Dr Mai (surgeon) followed patient throughout hospitalization. Date of Admission:06/07/16 Date of Discharge: 06/13/16 Minutes to complete discharge: 45 Discharge Summary Reason For Visit: INTUSSUSCEPTION OF INTESTINE Current Active Problems DVT prophylaxis (Acute) Intussusception intestine (Acute) Condition: Improved - Instructions Diet, Activity, Other Instructions: continue soft diet tylenol or ibuprofen for miminal pain oxycodone for severe pain, do not drive when taking oxycodone do not lift more than 10 lbs for 8 week no aeorbic exercise for 4 weeks please follow up with Dr Mai within 2 weeks if pain worsens or if vomiting develops, or if redness, discharge, or swelling develops to the incision, please return to the emergency department, Referrals: Narinder Mai MD [Staff Physician] - Disposition: HOME - Home Medications Comprehensive Discharge Medication List: Ambulatory Orders Escitalopram Oxalate [Lexapro -] 20 mg PO DAILY #10 tablet 05/08/16 Ondansetron [Zofran Odt -] 4 mg SL TID #10 od.tablet 05/08/16 Pantoprazole Sodium 40 mg PO DAILY 05/08/16 This patient is new to me today: No Emergency Visit: Yes ED Registration Date: 06/07/16 Care time: The patient presented to the Emergency Department on the above date and was hospitalized for further evaluation of their emergent condition. Critical Care patient: No - Discharge Referral Referred to [facility] No
[2016-06-13 14:33] VITALS: BP 95/65; PULSE 91; TEMP 98.5
== END 2016-06-13 16:25 | disposition home or self-care (01) | DRG 330 ==
LOC: FER 14:25 → FASUSAT 20:16 → FM/S 20:23
PROVIDERS: ADMIT Internal Medicine; ATTEND Nurse Practitioner Family
PROC: 3E1M38Z Irrigation of Peritoneal Cavity using Irrigating Substance, Percutaneous Approach (ICD-10-PCS; 2016-06-07)
PROC: 0DB80ZZ Excision of Small Intestine, Open Approach (ICD-10-PCS; principal; 2016-06-07 20:05)
DX: K56.1 Intussusception (principal); E87.2 Acidosis; K56.69 Other intestinal obstruction; K31.84 Gastroparesis; F41.0 Panic disorder [episodic paroxysmal anxiety]; D72.829 Elevated white blood cell count, unspecified
CPT/HCPCS: 36415; 74176-TC; 80048; 80053; 81003; 82150; 83605; 83690; 83735; 84100; 84703; 85025; 85610; 86850; 86900; 86901; 87040; 88307-TC; 94760; 99284-25

== ENCOUNTER 2017-04-19 16:00 | Emergency (ER) | payer BC ==
[2017-04-19 16:14] VITALS: BP 115/76; PULSE 96; BMI 21.4
[2017-04-19] MEDS ORDERED: SODIUM CHLORIDE 0.9% 1000 ML INFUS.BAG IV ONE ×2 (16:29→18:16)
[2017-04-19] MEDS ORDERED: ACETAMINOPHEN 1000 MG/100 ML VIAL (NON FORMULARY) IVPB ONE (16:30)
[2017-04-19 16:47] LABS: PH,URINE 6.5 (4.5-8); URINE APPEARANCE Clear; URINE BILIRUBIN Negative (NEGATIVE); URINE BLOOD Negative (NEGATIVE); URINE COLOR YELLOW; URINE GLUCOSE (UA) Negative (NEGATIVE); URINE KETONE Negative (NEGATIVE); URINE LEUK ESTERASE Negative (NEGATIVE); URINE NITRITE Negative (NEGATIVE); URINE PROTEIN Trace (NEGATIVE); URINE UROBILINOGEN 0.2 (0.2-1.0)
[2017-04-19] MEDS ORDERED: ONDANSETRON 4 MG/2 ML VIAL ONE ×2 (16:54→19:37)
[2017-04-19] MEDS ORDERED: FAMOTIDINE 20 MG/50 ML IVPB 20 MG/50 ML MG IVPB ONE (16:54)
[2017-04-19] MEDS ORDERED: ACETAMINOPHEN INJECTION 100 ML IVPB ONE (16:54)
--- NOTE | 2017-04-19 17:00 | PDOC ---
History of Present Illness - History of Present Illness Initial Comments: 04/19/17 17:00 The patient is a 26 year old female, with a significant past medical history of intussusception/SBO (06/07/16) s/p one foot bowel resection, who presents to the emergency department with about 2 weeks of cold-like symptoms, including fever, with new onset of increased daily emesis for about 6 days. The patient states she was seen at [facility] 5 days ago and was told she has the flu, but denies being tested because, as per the patient the clinic hadnt ordered the tests this season. The patient states she has not been febrile for about 3 days , however, reports about 5 episodes of nonbloody emesis for 6 days. The patient states she vomits about once daily following her abdominal surgery in June of this year, however, became concerned about the increase in emesis. She also reports a persistent, non-productive cough, as well as, a couple episodes of loose stools. She denies abdominal pain. The patient denies sick contacts. 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 She denies chest pain, shortness of breath, headache and dizziness. She denies chills and constipation. She denies dysuria, frequency, urgency and hematuria. Allergies: NKDA Past surgical history: bowel resection 06/07/16 Social history: Pt denies toxic habits <Rachel Lei - Last Filed: 04/19/17 17:00> - General History Source: Patient Exam Limitations: No Limitations <Simran Hoffman - Last Filed: 04/19/17 19:14> - General Chief Complaint: Nausea/Vomiting Stated Complaint: NAUSEA AND VOMTING Time Seen by Provider: 04/19/17 16:09 Past History <Rachel Lei - Last Filed: 04/19/17 17:00> - Past Medical History COPD: No GI Disorders: Yes (INTUSSCEPTION) Psychiatric Problems: Yes - Surgical History Abdominal Surgery: Yes - Suicide/Smoking/Psychosocial Hx Smoking History: Never smoked Have you smoked in the past 12 months: No Number of Cigarettes Smoked Daily: 0 Hx Alcohol Use: No Drug/Substance Use Hx: No Substance Use Type: None Hx Substance Use Treatment: No <Simran Hoffman - Last Filed: 04/19/17 19:14> - Past Medical History Allergies/Adverse Reactions: Allergies Allergy/AdvReac Type Severity Reaction Status Date / Time No Known Allergies Allergy Verified 06/07/16 14:31 Home Medications: Ambulatory Orders Escitalopram Oxalate [Lexapro -] 20 mg PO DAILY #10 tablet 05/08/16 Ethinyl Estradiol/Drospirenone [Vestura 3 mg-0.02 mg Tablet] 1 each PO 04/19/17 Guaifenesin [Mucinex] 600 mg PO PRN PRN 04/19/17 Levofloxacin [Levaquin] 750 mg PO ONCE #7 tab 04/19/17 Oseltamivir Phosphate [Tamiflu] 75 mg PO 04/19/17 Review of Systems - Review of Systems Able to Perform ROS?: Yes Comments:: 04/19/17 17:00 GENERAL/CONSTITUTIONAL: No fever or chills. No weakness. HEAD, EYES, EARS, NOSE AND THROAT: No change in vision. No ear pain or discharge. No sore throat. CARDIOVASCULAR: No chest pain or shortness of breath. RESPIRATORY: (+) cough, No wheezing, or hemoptysis. GASTROINTESTINAL: (+) nausea, vomiting, loose stools. No constipation. GENITOURINARY: No dysuria, frequency, or change in urination. MUSCULOSKELETAL: No joint or muscle swelling or pain. No neck or back pain. SKIN: No rash NEUROLOGIC: No headache, vertigo, loss of consciousness, or change in strength/ sensation. ENDOCRINE: No increased thirst. No abnormal weight change. HEMATOLOGIC/LYMPHATIC: No anemia, easy bleeding, or history of blood clots. ALLERGIC/IMMUNOLOGIC: No hives or skin allergy. <Rachel Lei - Last Filed: 04/19/17 17:00> *Physical Exam - Vital Signs Last Vital Signs Temp Pulse Resp BP Pulse Ox 98.6 F 96 H 16 115/76 100 04/19/17 16:06 04/19/17 16:06 04/19/17 16:06 04/19/17 16:06 04/19/17 16:06 - Physical Exam Comments: 04/19/17 17:01 GENERAL: Awake, alert, and fully oriented, in no acute distress HEAD: No signs of trauma EYES: PERRLA, EOMI, sclera anicteric, conjunctiva clear ENT: (+) dry mucosa. Auricles normal inspection, hearing grossly normal, nares patent, oropharynx clear without exudates. NECK: Normal ROM, supple, no lymphadenopathy, JVD, or masses LUNGS: Breath sounds equal, clear to auscultation bilaterally. No wheezes, and no crackles HEART: Regular rate and rhythm, normal S1 and S2, no murmurs, rubs or gallops ABDOMEN: Soft, nontender, normoactive bowel sounds. No guarding, no rebound. No masses EXTREMITIES: Normal range of motion, no edema. No clubbing or cyanosis. No cords, erythema, or tenderness NEUROLOGICAL: Cranial nerves II through XII grossly intact. Normal speech, normal gait SKIN: Warm, Dry, normal turgor, no rashes or lesions noted. <Rachel Lei - Last Filed: 04/19/17 17:00> - Vital Signs Last Vital Signs Temp Pulse Resp BP Pulse Ox 98.6 F 96 H 16 115/76 100 04/19/17 16:06 04/19/17 16:06 04/19/17 16:06 04/19/17 16:06 04/19/17 16:06 <Simran Hoffman - Last Filed: 04/19/17 19:14> ED Treatment Course - ADDITIONAL ORDERS Additional order review: Laboratory Results 04/19/17 16:25 Urine Color Yellow Urine Appearance Clear Urine pH 6.5 Ur Specific [place] 1.015 Urine Protein Trace Urine Glucose (UA) Negative Urine Ketones Negative Urine Blood Negative Urine Nitrite Negative Urine Bilirubin Negative Urine Urobilinogen 0.2 Ur Leukocyte Esterase Negative Urine HCG, Qual Negative <Rachel Lei - Last Filed: 04/19/17 17:00> - LABORATORY CBC & Chemistry Diagram: 04/19/17 17:00 04/19/17 17:00 - ADDITIONAL ORDERS Additional order review: Laboratory Results 04/19/17 16:25 Urine Color Yellow Urine Appearance Clear Urine pH 6.5 Ur Specific [place] 1.015 Urine Protein Trace Urine Glucose (UA) Negative Urine Ketones Negative Urine Blood Negative Urine Nitrite Negative Urine Bilirubin Negative Urine Urobilinogen 0.2 Ur Leukocyte Esterase Negative Urine HCG, Qual Negative - RADIOLOGY Radiology Studies Ordered: Category Date Time Status CHEST PA & LAT [RAD] Stat Radiology 04/19/17 16:29 Taken <Simran Hoffman - Last Filed: 04/19/17 19:14> Medical Decision Making - Medical Decision Making 04/19/17 16:57 26-year-old female with a history of previous abdominal surgery in June of this year for intussusception with subsequent bowel resection here today complaining of a viral syndrome for 1 week. Patient states that she's had 7 days of cough congestion headache did initially have fever for 3 days. But has been afebrile last 2-3 days. Normally has some daily emesis due to her prior abdominal surgery but over the last 2 days has had multiple episodes of nonbilious non-bloody emesis 5 times today. Is no longer having fevers no known sick contacts no recent travel no complaints of abdominal pain cough is nonproductive was seen at outside facility approximately 1 week ago and told that she had the flu however no flu swab was sent On exam she is awake alert no acute distress lung exam is clear bilaterally heart is regular without any murmurs rubs or gallops abdomen is soft and nontender extremities are warm well perfused skin is warm without any rash neuro Differential viral gastritis pneumonia UTI pyelonephritis dehydration and subsequent electrolyte abnormality plan UA UCG chest x-ray IV hydration and antiemetics will test for the flu and reassess 04/19/17 19:14 pt feeling better. tolerating PO . headache resolved. cxr with right sided cardiac border haziness. given levqauin, dc levaquin x 7 days. follow up wt pcp. <Simran Hoffman - Last Filed: 04/19/17 19:14> *DC/Admit/Observation/Transfer - Attestations Scribe Attestion: 04/19/17 17:03 Documentation prepared by Rachel Lei, acting as medical certification specialist for Simran Hoffman MD, <Rachel Lei - Last Filed: 04/19/17 17:00> - Discharge Dispostion Admit: No <Simran Hoffman - Last Filed: 04/19/17 19:14> Diagnosis at time of Disposition: Laceration - Discharge Dispostion Disposition: HOME Condition at time of disposition: Improved - Prescriptions Prescriptions: Levofloxacin [Levaquin] 750 mg PO ONCE #7 tab - Referrals Referrals: Chau Asher [Primary Care Provider] - - Patient Instructions Printed Discharge Instructions: DI for Vomiting -- Adult, Acute Bronchitis Additional Instructions: you should take levaquin 750 mg daily x 7 days. you can take tylenol 500 mg every 6 hours as needed for pain. follow up with your primary care doctor next week. return for fever. shortness of breath. persistant vomiting or any concerns. - Post Discharge Activity Forms/Work/School Notes: Back to Work
[2017-04-19] MEDS: ONDANSETRON 4 MG/2 ML VIAL IVPUSH PRN ×2 (17:03→19:45)
[2017-04-19] MEDS ORDERED: FAMOTIDINE IV 20 MG/12 ML VIAL IVPUSH ONE (17:05)
[2017-04-19 17:12] LABS: MCHC 31.7 g/dl (32.0-36.0); MEAN CELL VOLUME 66.2 fl (80-96); MEAN PLT VOLUME 8.9 fl (7.5-11.1); PLATELET COUNT 385 K/MM3 (134-434); WHITE BLOOD COUNT 20.1 K/mm3 (4.0-10.8)
[2017-04-19] MEDS ORDERED: LEVOFLOXACIN 750 MG IVPB 750 MG/150 ML BAG IVPB ONE ×2 (18:20→18:22)
[2017-04-19 18:39] LABS: ANISOCYTOSIS 1+; HYPOCHROMIA 2+; MICROCYTOSIS 2+; OVALOCYTE 1+
[2017-04-19 19:14] VITALS: TEMP 98.9
[2017-04-19 19:30] LABS: ALBUMIN 3.2 g/dl (3.4-5.0); ANION GAP 11 (8-16); CALCIUM 8.6 mg/dL (8.5-10.1); CO2 25 mmol/L (21-32); CREATININE 0.6 mg/dL (0.55-1.02); GLUCOSE,RANDOM 96 mg/dL (74-106); SGOT/AST 12 U/L (15-37); SGPT/ALT 22 U/L (12-78); TOT PROT 7.7 g/dl (6.4-8.2)
[2017-04-19 19:35] LABS: ALK PHOS 74 U/L (45-117); BILIRUBIN,TOTAL 0.5 mg/dL (0.2-1.0)
[2017-04-19] MEDS ORDERED: ESCITALOPRAM OXALATE 20 MG TABLET (FP) PO ONE (19:46)
[2017-04-19] MEDS ORDERED: ONDANSETRON *ODT* 4 MG TABLET ONE (20:01)
[2017-04-19] MEDS ORDERED: ONDANSETRON *ODT* 4 MG TABLET SL ONE (20:03)
[2017-04-19] MEDS: ONDANSETRON 4 MG TABLET PO ONE ×2 (20:05→20:08)
[2017-04-19] MEDS ORDERED: FAMOTIDINE IV 20 MG/12 ML VIAL IVPUSH SCH (22:00)
== END 2017-04-19 20:06 | disposition home or self-care (01) ==
LOC: SUPCPDRO 16:00 → FER 16:00
PROC: 3E0337Z Introduction of Electrolytic and Water Balance Substance into Peripheral Vein, Percutaneous Approach (ICD-10-PCS; principal; 2017-04-19)
PROC: 3E033NZ Introduction of Analgesics, Hypnotics, Sedatives into Peripheral Vein, Percutaneous Approach (ICD-10-PCS; 2017-04-19)
PROC: 3E033GC Introduction of Other Therapeutic Substance into Peripheral Vein, Percutaneous Approach (ICD-10-PCS; 2017-04-19)
PROC: 3E03329 Introduction of Other Anti-infective into Peripheral Vein, Percutaneous Approach (ICD-10-PCS; 2017-04-19)
DX: R11.2 Nausea with vomiting, unspecified (principal); Z87.898 Personal history of other specified conditions
CPT/HCPCS: 36415; 71020-TC; 80053; 81003; 83690; 84703; 85025; 87804; 99284-25

== ENCOUNTER 2019-03-23 21:01 | Emergency (ER) | payer BC ==
[2019-03-23 21:07] VITALS: TEMP 98.2; BMI 19.3
[2019-03-23] MEDS ORDERED: SODIUM CHLORIDE 1,000 ML IV ONE (21:13)
[2019-03-23] MEDS ORDERED: ONDANSETRON 4 MG/2 ML VIAL IVPUSH ONE (21:14)
[2019-03-23 21:46] LABS: HEMATOCRIT 34.1 % (32.4-45.2); HEMOGLOBIN 11.3 GM/dl (10.7-15.3); MCH 29.2 pg (25.7-33.7); MCHC 33.2 g/dl (32.0-36.0); MEAN CELL VOLUME 87.9 fl (80-96); MEAN PLT VOLUME 7.6 fl (7.5-11.1); PLATELET COUNT 469 K/MM3 (134-434); RBC 3.88 M/mm3 (3.60-5.2); RDW 12.1 % (11.6-15.6); WHITE BLOOD COUNT 12.6 K/mm3 (4.0-10.8)
[2019-03-23] MEDS ORDERED: ONDANSETRON 4 MG/2 ML VIAL ONE (21:48)
[2019-03-23 21:59] LABS: ALK PHOS 76 U/L (45-117); ANION GAP 7 MMOL/L (8-16); BILIRUBIN,TOTAL 0.8 mg/dl (0.2-1); CALCIUM 8.2 mg/dl (8.5-10); CHLORIDE 103 mmol/L (98-107); CO2 26 mmol/L (21-32); CREATININE 0.5 mg/dl (0.55-1.3); GLUCOSE,RANDOM 121 mg/dl (74-106); POTASSIUM 3.7 mmol/L (3.5-5.1); SGOT/AST 21 U/L (15-37); SGPT/ALT 20 U/L (13-61); SODIUM 136 mmol/L (136-145)
[2019-03-23 22:02] LABS: BLOOD UREA NITROGEN < 5.0 mg/dl (7-18)
[2019-03-23] MEDS ORDERED: AZITHROMYCIN IVPB 500 MG in DEXTROSE 5%-WATER - 250 ML IVPB ONE (22:10)
[2019-03-23 22:11] LABS: PLATELET ESTIMATE SLT INCREASE
[2019-03-23] MEDS ORDERED: AZITHROMYCIN 500 MG VIAL IVPB ONE (22:22)
--- NOTE | 2019-03-23 22:28 | PDOC ---
Documentation entered by Ravi Dorado SCRIBE, acting as scribe for Binta Urbina MD. Binta Urbina MD: This documentation has been prepared by the Estrada conway Aiswarya, SCRIBE, under my direction and personally reviewed by me in its entirety. I confirm that the documentation accurately reflects all work, treatment, procedures, and medical decision making performed by me. History of Present Illness - General Chief Complaint: Nausea/Vomiting Stated Complaint: N/V Time Seen by Provider: 03/23/19 21:06 - History of Present Illness Initial Comments: 03/23/19 22:07 The patient is a 28 year old female, with a significant PMH of intussusception , who presents to the emergency department with flu like symptoms that began 4 days ago. The patient states she endorses associated symptoms of fever, decreased appetite, nausea, vomiting, coughing and chills. The patient denies chest pain, shortness of breath, headache and dizziness. Denies diarrhea and constipation. Denies dysuria, frequency, urgency and hematuria. PAST MEDICAL HISTORY: no significant history PAST SURGICAL HISTORY: abdominal surgery secondary to intussusception FAMILY HISTORY: no pertinent history SOCIAL HISTORY: Pt lives with family and is employed. MEDICATIONS: reviewed ALLERGIES: As per nursing notes Adult ROS General:+fever and chills. no weakness, no weight loss HEENT: No change in vision. No sore throat,. No ear pain CardioVascular: No chest pain or shortness of breath Respiratory: +Cough. No wheezing. Gastrointestinal: +nausea +vomiting. No diarrhea or constipation, No rectal bleeding Genitourinary: No dysuria, hematuria, or frequency Musculoskeletal: No joint or muscle pain or swelling Neurologic: No headache, vertigo, dizziness or loss of consciousness Psychiatric: nor depression Skin: No rashes or easy bruising Endocrine: no increased thirst or abnormal weight change Allergic: no skin or latex allergy All other systems reviewed and normal Adult Exam: General: Well-nourished well-developed individual, no acute distress HEENT: Throat: Normal, tonsils normal, no erythema or exudate Neck: Supple, no meningeal signs, no lymphadenopathy Eyes::Pupils equal reactive and round, extraocular motion intact Chest: Nontender to palpation Cardiac: S1-S2 normal, regular rate and rhythm, no murmurs rubs or gallops Respiratory:+Decreased breath sounds at the base, left greater than right. Abdomen: Soft, nondistended, normal bowel sounds, nontender to palpation diffusely Extremities: Warm, dry, no cyanosis, clubbing, or edema Skin: No rashes Neuro: Alert and oriented x3, nonfocal exam, grossly intact, normal gait Psych: Normal mood and affect 03/23/19 22:23 Assessment and plan: This is a 28-year-old female comes in complaining of cough and posttussive nausea and vomiting. Patient had a work-up initiated including CBC, comp, chest x-ray, urine . Chest x-ray shows some bilateral patchy type infiltrate left side greater than right most likely secondary to a mycoplasma or atypical pneumonia Patient started on azithromycin first dose given here Patient hydrated with IV fluid given Zofran for the nausea and feels better Prescription for azithromycin sent to patient's pharmacy as well as some Zofran patient discharged Past History - Past Medical History Allergies/Adverse Reactions: Allergies Allergy/AdvReac Type Severity Reaction Status Date / Time No Known Allergies Allergy Verified 06/07/16 14:31 Home Medications: Ambulatory Orders Ethinyl Estradiol/Drospirenone [Vestura 3 mg-0.02 mg Tablet] 1 each PO 04/19/17 Azithromycin 250 mg PO DAILY #4 tablet 03/23/19 Clonazepam 1 mg PO DAILY 03/23/19 Escitalopram Oxalate [Lexapro -] 10 mg PO DAILY 03/23/19 Metoclopramide HCl [Reglan] 10 mg PO BID #10 tablet 03/23/19 COPD: No GI Disorders: Yes (INTUSSCEPTION) Psychiatric Problems: Yes - Surgical History Abdominal Surgery: Yes - Psycho Social/Smoking Cessation Hx Smoking History: Unknown if ever smoked Have you smoked in the past 12 months: No Number of Cigarettes Smoked Daily: 0 Information on smoking cessation initiated: No Hx Alcohol Use: No Drug/Substance Use Hx: No Substance Use Type: None Hx Substance Use Treatment: No *Physical Exam - Vital Signs Last Vital Signs Temp Pulse Resp BP Pulse Ox 98.2 F 120 H 14 112/70 95 03/23/19 21:03 03/23/19 21:03 03/23/19 21:03 03/23/19 21:03 03/23/19 21:03 ED Treatment Course - LABORATORY CBC & Chemistry Diagram: 03/23/19 21:35 03/23/19 21:40 - ADDITIONAL ORDERS Additional order review: Laboratory Results 03/23/19 21:09 Urine HCG, Qual Negative - RADIOLOGY Radiology Studies Ordered: Category Date Time Status CHEST PA & LAT [RAD] Stat Radiology 03/23/19 21:13 Taken - Medications Given in the ED: ED Medications Discontinued Medications Generic Name Dose Route Start Last Admin Trade Name Kirill PRN Reason Stop Dose Admin Ondansetron HCl 4 mg 03/23/19 21:14 03/23/19 21:40 Zofran Injection IVPUSH 03/23/19 21:15 4 mg ONCE ONE Administration Discharge - Discharge Information Problems reviewed: Yes Clinical Impression/Diagnosis: Pneumonia Condition: Good Disposition: HOME - Admission No - Follow up/Referral Referrals: Chau Asher [Primary Care Provider] - - Patient Discharge Instructions Additional Instructions: For the pneumonia take azithromycin 1 tablet a day for the next 4 days. Take your first dose tomorrow evening with food. Prior to taking the azithromycin take 1 Reglan for the nausea. You can take the Reglan as often as 2-3 times a day if needed for nausea. Return to the emergency department immediately with ANY new, persistent or worsening symptoms. Continue any medications as previously prescribed by your physician. You should follow up with your primary doctor as soon as possible regarding today's emergency department visit. . Please make sure your doctor reviews the results of your emergency evaluation. Thank you for coming to the Emergency Department today for your care. It was a pleasure to see you today. Please note that your evaluation is INCOMPLETE until you follow-up with your doctor. - Post Discharge Activity Work/Back to School Note: Back to Work
[2019-03-23 23:33] VITALS: BP 110/65; PULSE 98
== END 2019-03-23 23:59 | disposition home or self-care (01) ==
LOC: FER 21:01
PROC: 3E03329 Introduction of Other Anti-infective into Peripheral Vein, Percutaneous Approach (ICD-10-PCS; principal; 2019-03-23)
PROC: 3E033GC Introduction of Other Therapeutic Substance into Peripheral Vein, Percutaneous Approach (ICD-10-PCS; 2019-03-23)
PROC: 3E0337Z Introduction of Electrolytic and Water Balance Substance into Peripheral Vein, Percutaneous Approach (ICD-10-PCS; 2019-03-23)
DX: J18.9 Pneumonia, unspecified organism (principal); K56.1 Intussusception; F99 Mental disorder, not otherwise specified
CPT/HCPCS: 36415; 71046-TC-FY; 80053; 83690; 84703; 85025; 87804; 99283-25; J7030

== ENCOUNTER 2019-03-29 06:04 | Inpatient (IN) | payer BC ==
[2019-03-29] MEDS ORDERED: ONDANSETRON 4 MG/2 ML VIAL IVPUSH ONE (06:06)
[2019-03-29] MEDS ORDERED: SODIUM CHLORIDE 1,000 ML IV STA ×2 (06:06→06:48)
--- NOTE | 2019-03-29 06:07 | PDOC ---
History of Present Illness - General Chief Complaint: Pain, Acute Stated Complaint: ABDOMINAL PAIN, VOMITING Time Seen by Provider: 03/29/19 06:05 - History of Present Illness Initial Comments: 03/29/19 06:24 This 28-year-old woman with a history of intussusception (June,) and bibasilar pneumonia diagnosed last week presents with several day history of nausea and vomiting and few hour history of abdominal pain. She has tolerated only soft or liquid diet over the last few days (finished 5-day course of azithromycin yesterday) accompanied by watery diarrhea over the last few days. No blood or coffee grounds in emesis. She has had mucus without blood in stools. About 2 hours prior to presentation, she had onset of steady mid abdominal pain, stating this is similar to the pain that she felt with intussusception in 2016. No fever/chills. Patient last ate at 5 PM last night ; last liquid BM was a few hours prior to arriving in the ER and she vomited on the way to the ER. 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 States that she left work early because of persistent shortness of breath and nausea. PMH: As above, also history of anxiety/panic attacks Past History - Past Medical History Allergies/Adverse Reactions: Allergies Allergy/AdvReac Type Severity Reaction Status Date / Time No Known Allergies Allergy Verified 03/29/19 06:08 Home Medications: Ambulatory Orders Ethinyl Estradiol/Drospirenone [Vestura 3 mg-0.02 mg Tablet] 1 each PO DAILY Clonazepam 1 mg PO DAILY 03/23/19 Escitalopram Oxalate [Lexapro -] 10 mg PO DAILY 03/23/19 COPD: No GI Disorders: Yes (INTUSSCEPTION) Psychiatric Problems: Yes - Surgical History Abdominal Surgery: Yes - Psycho Social/Smoking Cessation Hx Smoking History: Never smoked Have you smoked in the past 12 months: No Number of Cigarettes Smoked Daily: 0 Hx Alcohol Use: No Drug/Substance Use Hx: No Substance Use Type: None Hx Substance Use Treatment: No Review of Systems - Review of Systems Able to Perform ROS?: Yes Comments:: 12 point review of systems is negative except for what is noted in the history of present illness *Physical Exam - Physical Exam Comments: GENERAL: Adult female, alert and oriented x3, in moderate distress secondary to mid abdominal pain HEAD: Normal with no signs of trauma. EYES: PERRLA, EOMI, sclera anicteric, conjunctiva clear. ENT: Ears normal, nares patent, oropharynx clear without exudates. Dry mucous membranes. NECK: Normal range of motion, supple without lymphadenopathy, JVD, or masses. LUNGS: Breath sounds equal, clear to auscultation bilaterally. No wheezes, and no crackles. HEART:Regular rate and rhythm, normal S1 and S2 without murmur, rub or gallop. ABDOMEN:.Hypoactive bowel sounds; soft, nondistended.mild generalized tenderness (especially epigastrium/upper periumbilical area); no masses EXTREMITIES: Normal range of motion, no edema. No clubbing or cyanosis. No erythema, or tenderness. NEUROLOGICAL: Cranial nerves II through XII grossly intact. Normal speech. No focal neurological deficits. SKIN: Warm, Dry, normal turgor, no rashes or lesions noted. ED Treatment Course - LABORATORY CBC & Chemistry Diagram: 03/30/19 07:22 03/30/19 07:22 Medical Decision Making - Medical Decision Making 03/29/19 06:37 This 28-year-old woman with a history of intussusception almost 3 years ago ( treated surgically in this institution) presents with several days of persistent nausea vomiting and diarrhea and onset of steady epigastric/ periumbilical pain over the last few hours. Patient states that since is the first time she has felt this pain since her episode of intussusception although she has had occasional nausea/vomiting. Exam as noted with quiet abdomen with generalized mild tenderness but no point tenderness, masses or evidence of peritoneal irritation signs at this point. Differential diagnosis includes recurrent small bowel obstruction/ intussusception, gastroenteritis (perhaps enhanced with azithromycin side effects). CBC/chemistry profile/UA with [id number] PGU performed and is negative. IV hydration with normal saline begun and patient given Zofran 4 mg IV. Because of persistent severe abdominal pain, patient given 2 mg of morphine IV 03/29/19 06:43 Patient had partial relief of her pain with 2 mg of morphine IV; second dose of 2 mg morphine IV will be given with additiona 4 mg Zofran IV for persistent nausea. Additional liter of normal saline IV also begun CTAP planned to further elucidate etiology of patient's mid abdominal pain 03/29/19 07:16 Case signed out to Dr Lion. at end of shift Discharge - Discharge Information Problems reviewed: Yes Clinical Impression/Diagnosis: Abdominal pain, Pneumonia, Nausea & vomiting Condition: Stable - Follow up/Referral - Patient Discharge Instructions - Post Discharge Activity
[2019-03-29] MEDS ORDERED: morphine CARPU-JECT 2 MG/1 ML DISP.SYRIN IVPUSH ONE ×2 (06:22→06:38)
[2019-03-29] MEDS ORDERED: morphine SULFATE 4 MG/ML VIAL ONE ×3 (06:27→09:20)
[2019-03-29] MEDS ORDERED: ONDANSETRON 4 MG/2 ML VIAL ONE ×2 (06:45→12:29)
[2019-03-29] MEDS ORDERED: ACETAMINOPHEN 1000 MG/100 ML VIAL (NON FORMULARY) IVPB ONE (07:20)
[2019-03-29] MEDS ORDERED: ACETAMINOPHEN INJECTION 100 ML IVPB ONE ×2 (07:27→13:44)
[2019-03-29 07:39] LABS: HYALINE CASTS 29 /lpf (0-8); PH,URINE 6.5 (5.0-8.0); URINE APPEARANCE CLOUDY; URINE BACTERIA 152.6 /hpf (NEGATIVE); URINE BILIRUBIN 2+ (NEGATIVE); URINE COLOR DK YELLOW; URINE GLUCOSE (UA) NEGATIVE (NEGATIVE); URINE KETONE 1+ (NEGATIVE); URINE LEUK ESTERASE TRACE (NEGATIVE); URINE NITRITE POSITIVE (NEGATIVE); URINE PROTEIN 1+ (NEGATIVE); URINE RBC 2 /hpf (0-4); URINE WBC 3 /hpf (0-5)
[2019-03-29 07:41] LABS: BASO % 0.5 % (0-2.0); EOS % 0.1 % (0-4.5); LYMPH % 14.7 % (8-40); MCH 28.6 pg (25.7-33.7); MCHC 33.2 g/dl (32.0-36.0); MEAN CELL VOLUME 86.1 fl (80-96); MEAN PLT VOLUME 7.9 fl (7.5-11.1); NEUT % 80.7 % (42.8-82.8); PLATELET COUNT 814 K/MM3 (134-434); RBC 4.18 M/mm3 (3.60-5.2); WHITE BLOOD COUNT 15.6 K/mm3 (4.0-10.0)
[2019-03-29 08:13] LABS: ALBUMIN 2.9 g/dl (3.4-5.0); BILIRUBIN,TOTAL 1.6 mg/dL (0.2-1); BLOOD UREA NITROGEN 3.7 mg/dL (7-18); CREATININE 0.7 mg/dL (0.55-1.3); POTASSIUM 4.3 mmol/L (3.5-5.1); TOT PROT 7.8 g/dl (6.4-8.2)
[2019-03-29] MEDS ORDERED: morphine CARPU-JECT 4 MG/1 ML DISP.SYRIN IVPUSH ONE ×2 (08:37→09:19)
--- NOTE | 2019-03-29 09:29 | PDOC ---
*Physical Exam - Vital Signs Last Vital Signs Temp Pulse Resp BP Pulse Ox 98.6 F 88 20 118/74 97 03/29/19 06:12 03/29/19 06:12 03/29/19 06:12 03/29/19 06:12 03/29/19 06:12 ED Treatment Course - LABORATORY CBC & Chemistry Diagram: 03/29/19 06:15 03/29/19 06:15 - ADDITIONAL ORDERS Additional order review: Laboratory Results 03/29/19 03/29/19 06:15 06:15 Sodium 130 L Potassium 4.3 Chloride 94 L Carbon Dioxide 27 Anion Gap 9 BUN 3.7 L Creatinine 0.7 Est GFR (CKD-EPI)AfAm 137.62 Est GFR (CKD-EPI)NonAf 118.74 Random Glucose 108 H Calcium 9.0 Total Bilirubin 1.6 H AST 90 H ALT 79 H Alkaline Phosphatase 235 H Total Protein 7.8 Albumin 2.9 L Urine Color Dk yellow Urine Appearance Cloudy Urine pH 6.5 Ur Specific [place] 1.020 Urine Protein 1+ H Urine Glucose (UA) Negative Urine Ketones 1+ H Urine Blood Negative Urine Nitrite Positive H Urine Bilirubin 2+ H Urine Urobilinogen 1.0 Ur Leukocyte Esterase Trace Urine WBC (Auto) 3 Urine RBC (Auto) 2 Urine Casts (Auto) 29 U Pathogenic Cast Auto Negative U Epithel Cells (Auto) 8.0 Urine Bacteria (Auto) 152.6 03/29/19 06:15 RBC 4.18 MCV 86.1 MCHC 33.2 RDW 13.0 MPV 7.9 Neutrophils % 80.7 Lymphocytes % 14.7 D Monocytes % 4.0 Eosinophils % 0.1 D Basophils % 0.5 D - RADIOLOGY Radiology Studies Ordered: Category Date Time Status ABDOMEN & PELVIS CT WITH CONTR [CT] Stat CT Scan 03/29/19 08:30 Taken ABDOMEN US [US] Stat Ultrasound 03/29/19 09:20 Ordered - Medications Given in the ED: ED Medications Discontinued Medications Generic Name Dose Route Start Last Admin Trade Name Freq PRN Reason Stop Dose Admin Acetaminophen 1,000 mg 03/29/19 07:20 03/29/19 07:32 Ofirmev Injection - IVPB 03/29/19 07:21 1,000 mg ONCE ONE Administration Sodium Chloride 1,000 mls @ 1,000 mls/hr 03/29/19 06:06 03/29/19 06:15 Normal Saline - IV 03/29/19 07:05 1,000 mls/hr ASDIR STA Administration Sodium Chloride 1,000 mls @ 1,000 mls/hr 03/29/19 06:48 03/29/19 06:45 Normal Saline - IV 03/29/19 07:47 1,000 mls/hr ASDIR STA Administration Morphine Sulfate 2 mg 03/29/19 06:22 03/29/19 06:20 Morphine Injection - IVPUSH 03/29/19 06:23 2 mg ONCE ONE Administration Morphine Sulfate 2 mg 03/29/19 06:38 03/29/19 06:45 Morphine Injection - IVPUSH 03/29/19 06:39 2 mg ONCE ONE Administration Morphine Sulfate 2 mg 03/29/19 08:37 03/29/19 08:46 Morphine Injection - IVPUSH 03/29/19 08:38 2 mg ONCE ONE Administration Ondansetron HCl 4 mg 03/29/19 06:06 03/29/19 06:50 Zofran Injection IVPUSH 03/29/19 06:07 4 mg ONCE ONE Administration Medical Decision Making - Medical Decision Making 03/29/19 09:27 Signout received at 7AM. Pt is a 28 F with h/o intussusception, recently diagnosed bibasilar PNA s/p azithromycin, presenting with abdominal pain and vomiting. Pt reports mid- epigastric and periumbilical pain. Labs notable for leukocytosis and mild transaminitis with elevated bili. On my exam, pt tender diffusely but more pronounced in periumbilical region. CT obtained, pending report. RUQ US added to r/o cholecystitis 03/29/19 10:48 CT with bibasilar opacities, possible colitis? Will start Levaquin + Flagyl Discharge - Discharge Information Problems reviewed: Yes Clinical Impression/Diagnosis: Abdominal pain, Pneumonia, Nausea & vomiting Condition: Stable - Admission Yes - Follow up/Referral - Patient Discharge Instructions - Post Discharge Activity
[2019-03-29] MEDS ORDERED: HYDROmorphone HCL CARPU-JECT 1 MG/1 ML DISP.SYRIN IVPUSH ONE ×2 (10:29→16:07)
[2019-03-29] MEDS ORDERED: HYDROmorphone HCL CARPU-JECT 1 MG/1 ML DISP.SYRIN ONE ×2 (10:31→16:08)
--- NOTE | 2019-03-29 11:21 | HP ---
"CHIEF COMPLAINT: Nausea, vomiting PCP: Stephy Louis HISTORY OF PRESENT ILLNESS: 28 year-old female with a PMH significant for possible gastroparesis, intussuception of mid small bowel s/p lap small bowel resection (2016), and anxiety/panic disorder. Patient presented to the ED with a complaint of worsening nausea, vomiting, and diarrhea x 7-10 days, and new onset of abdominal pain today. Patient states she has had persistent nausea and vomiting since her 2017 small bowel resection surgery. She has followed twice with a GI specialist at [place] (cannot recall his name) and the workups have been negative including a gastric emptying study and an MRI done one year ago. She does not take GI meds on a regular basis. Rather, she has been vaping marijuana on at least a weekly basis for the past 2 years as this is the only agent that manages her symptoms. Patient presented to the [facility] ED a week ago with symptoms of nausea, vomiting, coughing, chills and subjective fever. CXR showed basilar infiltrates L>R. Patient was started on azithromycin and discharged to home. She finished the antibiotics. She returned to the ED today because the abdominal pain she was experiencing was similar to the pain she felt in 2017 which resulted in her surgery. ER course was notable for: (1) WBC 15.6 (<--12.6k on 03/23) (2) Na 130 (3) Total bili 1.6, AST/ALT/Alk Phos all elevated from 03/23 Recent Travel: [place] in December 2018 PAST MEDICAL HISTORY: Possible gastroparesis Intussuception of mid small bowel Anxiety/panic disorder PAST SURGICAL HISTORY: Lap small bowel resection ([facility], 06/2016) Social History: works as a teacher; lives with parents in the [place] Smoking: denies tobacco Alcohol: no Vaping: has vaped marijuana regularly over the past 2 years Allergies No Known Allergies Allergy (Verified 03/29/19 06:08) HOME MEDICATIONS: Home Medications Medication Instructions Recorded Ethinyl Estradiol/Drospirenone 1 each PO DAILY 04/19/17 [Vestura 3 mg-0.02 mg Tablet] Clonazepam 1 mg PO DAILY 03/23/19 Escitalopram Oxalate [Lexapro -] 10 mg PO DAILY 03/23/19 REVIEW OF SYSTEMS CONSTITUTIONAL: +fever, chills, loss of appetitite, weight loss Absent: diaphoresis, generalized weakness, malaise HEENT: Absent: rhinorrhea, nasal congestion, throat pain, throat swelling, difficulty swallowing, mouth swelling, ear pain, eye pain, visual changes CARDIOVASCULAR: Absent: chest pain, syncope, palpitations, irregular heart rate, lightheadedness , peripheral edema RESPIRATORY: +cough Absent: shortness of breath, dyspnea with exertion, orthopnea, wheezing, stridor , hemoptysis GASTROINTESTINAL: +abdominal pain, nausea, vomiting, diarrhea Absent: constipation, melena, hematochezia GENITOURINARY: +chronic urgency Absent: dysuria, frequency, hesitancy, hematuria, flank pain, genital pain MUSCULOSKELETAL: Absent: myalgia, arthralgia, joint swelling, back pain, neck pain SKIN: Absent: rash, itching, pallor HEMATOLOGIC/IMMUNOLOGIC: Absent: easy bleeding, easy bruising, lymphadenopathy, frequent infections ENDOCRINE: Absent: unexplained weight gain, unexplained weight loss, heat intolerance, cold intolerance NEUROLOGIC: Absent: headache, focal weakness or paresthesias, dizziness, unsteady gait, seizure, mental status changes, bladder or bowel incontinence PSYCHIATRIC: +anxiety Absent: anxiety, depression, suicidal or homicidal ideation, hallucinations. PHYSICAL EXAMINATION Vital Signs - 24 hr 03/29/19 03/29/19 06:12 11:17 Temperature 98.6 F 97.9 F Pulse Rate 88 Pulse Rate [ 66 Left Radial] Respiratory 20 16 Rate Blood Pressure 118/74 Blood Pressure 92/55 L [Right Arm] O2 Sat by Pulse 97 98 Oximetry (%) GENERAL: Awake, alert, and fully oriented, in no acute distress. Anxious. HEAD: Normal with no signs of trauma. LUNGS: Breath sounds equal, clear to auscultation bilaterally. No wheezes, and no crackles. No accessory muscle use. HEART: Regular rate and rhythm, normal S1 and S2 without murmur, rub or gallop. ABDOMEN: Soft, diffusely tender, hypoactive bowel sounds, no guarding, no rebound tenderness MUSCULOSKELETAL: Normal range of motion at all joints. No bony deformities or tenderness. No CVA tenderness. UPPER EXTREMITIES: 2+ pulses, warm, well-perfused. No cyanosis. No clubbing. No peripheral edema. LOWER EXTREMITIES: 2+ pulses, warm, well-perfused. No calf tenderness. No peripheral edema. NEUROLOGICAL: Cranial nerves II-XII intact. Normal speech. Laboratory Results - last 24 hr 03/29/19 03/29/19 03/29/19 06:15 06:15 06:15 WBC 15.6 H RBC 4.18 Hgb 12.0 Hct 36.0 MCV 86.1 MCH 28.6 MCHC 33.2 RDW 13.0 Plt Count 814 H D MPV 7.9 Absolute Neuts (auto) 12.6 H Neutrophils % 80.7 Lymphocytes % 14.7 D Monocytes % 4.0 Eosinophils % 0.1 D Basophils % 0.5 D Nucleated RBC % 0 Sodium 130 L Potassium 4.3 Chloride 94 L Carbon Dioxide 27 Anion Gap 9 BUN 3.7 L Creatinine 0.7 Est GFR (CKD-EPI)AfAm 137.62 Est GFR (CKD-EPI)NonAf 118.74 Random Glucose 108 H Calcium 9.0 Total Bilirubin 1.6 H AST 90 H ALT 79 H Alkaline Phosphatase 235 H Total Protein 7.8 Albumin 2.9 L Urine Color Dk yellow Urine Appearance Cloudy Urine pH 6.5 Ur Specific Silas 1.020 Urine Protein 1+ H Urine Glucose (UA) Negative Urine Ketones 1+ H Urine Blood Negative Urine Nitrite Positive H Urine Bilirubin 2+ H Urine Urobilinogen 1.0 Ur Leukocyte Esterase Trace Urine WBC (Auto) 3 Urine RBC (Auto) 2 Urine Casts (Auto) 29 U Pathogenic Cast Auto Negative U Epithel Cells (Auto) 8.0 Urine Bacteria (Auto) 152.6 ASSESSMENT/PLAN: 28 year-old female with a PMH significant for possible gastroparesis, intussuception of mid small bowel s/p lap small bowel resection (2016), and anxiety/panic disorder. Admitted for nausea, vomiting, elevated LFTs, and pneumonia. Nausea, vomiting Elevated LFTs --03/29 CTAP: amorphous appearing colon, colitis cannot be excluded; retroverted uterus with prominent endometrium --03/29 US: normal gallbladder, no evidence of intra or extrahepatic biliary duct dilatation --03/29 MRCP: done, pending dictation --empiric metronidazole and levofloxacin --IV fluids --NPO --Tigan PRN (avoid Zofran as patient on SSRI) --IV Tylenol for pain; no opiates --GI and surgical consults Pneumonia --03/29 CT: patchy bibasilar infiltrates of uncertain chronicity (also seen on 03/23 CXR) --completed z-ender --vapes regularly --pulmonary consult Hyponatremia --IV fluids Anxiety/panic disorder --continue clonazepam, lexapro DVT prophylaxis: oob, ambulation I STAT Dispo: continues to require inpatient care. Full code. Search Date: 03/29/2019 05:35:09 PM The Drug Utilization Report below displays all of the controlled substance prescriptions, if any, that your patient has filled in the last twelve months. The information displayed on this report is compiled from pharmacy submissions to the Department, and accurately reflects the information as submitted by the pharmacies. This report was requested by: Roxann Castillo | Reference #: [id number] Others' Prescriptions Patient Name: Lashanda Zepeda Date: 1990 Address: [address] [place] [address] Sex: Female Rx Written Rx Dispensed Drug Quantity Days Supply Prescriber Name 03/09/2019 03/10/2019 clonazepam 0.5 mg tablet 60 30 Chau Asher MD 02/08/2019 02/08/2019 clonazepam 0.5 mg tablet 60 30 Chau Asher MD Visit type - Emergency Visit Emergency Visit: Yes ED Registration Date: 03/29/19 Care time: The patient presented to the Emergency Department on the above date and was hospitalized for further evaluation of their emergent condition. - New Patient This patient is new to me today: Yes Date on this admission: 03/29/19 - Critical Care Critical Care patient: No"
[2019-03-29] MEDS ORDERED: ONDANSETRON 4 MG/2 ML VIAL IVPB ONE (12:25)
[2019-03-29] MEDS: SODIUM CHLORIDE 1,000 ML IV SCH ×2 (13:30→19:49)
[2019-03-29] MEDS: ACETAMINOPHEN 1000 MG/100 ML VIAL (NON FORMULARY) IVPB SCH ×2 (13:54→19:50)
[2019-03-29] MEDS ORDERED: FAMOTIDINE 20 MG/50 ML IVPB 20 MG/50 ML MG IVPB ONE (13:57)
[2019-03-29] MEDS ORDERED: LORazepam 2 MG/ML SDV VIAL ONE (15:36)
[2019-03-29 15:58] LABS: MAGNESIUM 2.1 mg/dL (1.8-2.4)
[2019-03-29] MEDS ORDERED: TRIMETHOBENZAMIDE HCL 300 MG CAPSULE PO PRN (18:24)
[2019-03-29] MEDS: TRIMETHOBENZAMIDE HCL 200MG/2ML INJ IM PRN (20:48)
[2019-03-29] MEDS: clonazePAM 0.5 MG TABLET PO SCH (22:00)
[2019-03-30] MEDS: ACETAMINOPHEN 1000 MG/100 ML VIAL (NON FORMULARY) IVPB SCH ×2 (00:36→06:31)
[2019-03-30] MEDS ORDERED: MELATONIN 5 MG TABLETS PO ONE (02:47)
[2019-03-30] MEDS: TRIMETHOBENZAMIDE HCL 200MG/2ML INJ IM PRN ×2 (02:58→12:21)
[2019-03-30 08:07] LABS: HEMATOCRIT 31.4 % (32.4-45.2); HEMOGLOBIN 10.3 GM/dl (10.7-15.3); MCH 28.7 pg (25.7-33.7); MCHC 32.9 g/dl (32.0-36.0); MEAN CELL VOLUME 87.2 fl (80-96); MEAN PLT VOLUME 7.7 fl (7.5-11.1); PLATELET COUNT 640 K/MM3 (134-434); RDW 12.1 % (11.6-15.6); WHITE BLOOD COUNT 11.9 K/mm3 (4.0-10.8)
--- NOTE | 2019-03-30 08:08 | PN ---
Physical Exam: SUBJECTIVE: Patient seen and examined. Boyfriend present and father. OBJECTIVE: Vital Signs Period Temp Pulse Resp BP Sys/Mario Pulse Ox Last 24 Hr 97.5 F-97.9 F 61-84 16-18 92-128/55-85 95-98 GENERAL: The patient is awake, alert, and fully oriented, in no acute distress. HEAD: Normal with no signs of trauma. EYES: PERRL, extraocular movements intact, sclera anicteric, conjunctiva clear. No ptosis. ENT: Ears normal, nares patent, oropharynx clear without exudates, moist mucous membranes. NECK: Trachea midline, full range of motion, supple. LUNGS: Breath sounds equal, clear to auscultation bilaterally, no wheezes, no crackles, no accessory muscle use. HEART: Regular rate and rhythm, S1, S2 without murmur, rub or gallop. ABDOMEN: Soft, nontender, nondistended, normoactive bowel sounds, no guarding, no rebound, no hepatosplenomegaly, no masses. EXTREMITIES: 2+ pulses, warm, well-perfused, no edema. NEUROLOGICAL: Cranial nerves II through XII grossly intact. Normal speech, gait not observed. PSYCH: Normal mood, normal affect. SKIN: Warm, dry, normal turgor, no rashes or lesions noted Laboratory Results - last 24 hr 03/29/19 03/29/19 03/29/19 06:15 06:15 20:00 Sodium 130 L Potassium 4.3 Chloride 94 L Carbon Dioxide 27 Anion Gap 9 BUN 3.7 L Creatinine 0.7 Est GFR (CKD-EPI)AfAm 137.62 Est GFR (CKD-EPI)NonAf 118.74 Random Glucose 108 H Calcium 9.0 Magnesium 2.1 Total Bilirubin 1.6 H AST 90 H ALT 79 H Alkaline Phosphatase 235 H Total Protein 7.8 Albumin 2.9 L Total Amylase 35 Lipase 118 U Pathogenic Cast Auto Negative Urine HCG, Qual Negative Active Medications Generic Name Dose Route Start Last Admin Trade Name Freq PRN Reason Stop Dose Admin Clonazepam 0.5 mg 03/29/19 22:00 03/29/19 22:00 Klonopin - PO 0.5 mg BID GUERDA Administration Escitalopram Oxalate 10 mg 03/30/19 10:00 Lexapro - PO DAILY GUERDA Sodium Chloride 1,000 mls @ 125 mls/hr 03/29/19 12:00 03/29/19 19:49 Normal Saline - IV 125 mls/hr ASDIR GUERDA Administration Metronidazole 500 mg in 100 mls @ 100 mls/hr 03/29/19 20:00 03/30/19 02:59 Flagyl 500mg Premixed Ivpb - IVPB 100 mls/hr Q8H GUERDA Administration Levofloxacin 500 mg in 100 mls @ 100 mls/hr 03/30/19 10:00 Levaquin 500 Mg Premixed Ivpb - IVPB DAILY GUERDA Protocol Non-Formulary Medication 1 each 03/30/19 10:00 Ethinyl Estradiol/Drospirenone [Vestura 3 Mg-0.02 Mg Tablet] PO DAILY GUERDA Trimethobenzamide HCl 200 mg 03/29/19 20:42 03/30/19 02:58 Tigan Injection - IM 200 mg Q8H PRN Administration NAUSEA ASSESSMENT/PLAN:
[2019-03-30 08:13] LABS: ALBUMIN 2.3 g/dl (3.4-5.0); BILIRUBIN,TOTAL 0.6 mg/dl (0.2-1); CALCIUM 8.1 mg/dl (8.5-10); CREATININE 0.4 mg/dl (0.55-1.3); MAGNESIUM 1.9 mg/dL (1.8-2.4); POTASSIUM 4.3 mmol/L (3.5-5.1); TOT PROT 6.2 g/dl (6.4-8.2)
[2019-03-30 08:14] LABS: ADD RBC MORPHOLOGY YES
--- NOTE | 2019-03-30 09:34 | PN ---
Progress Note (short form) - Note Progress Note: Patient seen and consult dictated Patient with recent elevated LFTs (now improved) with negative sono (and MRI pending). Was on Zithromax for pneumonia last week (last pill 3 days ago); ?drug-induced hepatic changes from antibiotic? Await MRI results. Also with hx of intussusception and surgical repair ; has had intermittent abdominal pains since ?adhesions ? Rec; prn Zofran or Tigan Begin on clear liquids Follow clinically
[2019-03-30] MEDS: clonazePAM 0.5 MG TABLET PO SCH (09:40)
[2019-03-30 09:56] VITALS: BMI 18.4
[2019-03-30] MEDS ORDERED: [UNRECOGNIZED DRUG - OTHER] PO SCH (10:00)
[2019-03-30] MEDS ORDERED: ETHINYL ESTRADIOL PO SCH (10:00)
[2019-03-30] MEDS ORDERED: clonazePAM 0.5 MG TABLET PO SCH (10:00)
[2019-03-30] MEDS ORDERED: DROSPIRENONE PO SCH (10:00)
[2019-03-30] MEDS ORDERED: ESCITALOPRAM OXALATE 10 MG TABLET (FP) PO SCH (10:00)
[2019-03-30 10:12] LABS: PLATELET ESTIMATE INCREASED
[2019-03-30] MEDS: SODIUM CHLORIDE 1,000 ML IV SCH (12:21)
--- NOTE | 2019-03-30 13:25 | CONS ---
DATE OF CONSULTATION: 03/30/2019 HISTORY: Asked to evaluate this 28-year-old female with recent admission for abdominal discomfort and elevated liver chemistries. The patient has a history of prior small bowel intussusception status post laparoscopic small-bowel resection of a small portion of the small bowel in 2017. The patient also has a history of pneumonia treated last week with Zithromax completing the course 2-3 days ago. The patient was admitted via the emergency room with abdominal pain similar to that of which she had prior to her intussusception surgery. Her abdomen and pelvic CAT scan showed some bibasilar infiltrates in the lungs and enlarged liver with possible fatty changes and what was described as an amorphous appearance of the colon. There was no evidence of bowel obstruction. The patient had an initial white count of 15.6, which is now 11.9, and her hemoglobin was 12 and is now 10.3. Her chemistries included elevated liver chemistries on admission with a total bilirubin of 1.6, AST 90, ALT 79, alkaline phosphatase 235. Her amylase 35 and lipase 118. The patient had a sonogram, which showed no evidence of gallstones or bile ducal dilatation. Her repeat liver chemistries today are bilirubin 0.6, AST 22, ALT 38, alkaline phosphatase 118. The patient also has an MRI of the abdomen, which did not show evidence of gallstones or stones in the common bile duct; however, the liver was described as being enlarged. PHYSICAL EXAMINATION: General: The patient is a well-developed, slightly thin female. HEENT: Dibble conjunctivae. No icterus. Abdomen: Soft and nondistended. Bowel sounds are present. There is a healed laparoscopic scar and some nonspecific discomfort to deep palpation. Patient had admission with elevated liver chemistries without any evidence of gallstones or obstruction. She does have an enlarged liver of unclear etiology. Most likely, however, in view of the rapid improvement of her liver chemistries is either they were initially due to the unlikely pneumonia and infection or more likely a reaction to Zithromax with drug-induced hepatic injury pattern. As they are improving, no further recommendations would be made except for follow up LFTs at a future date and avoid Zithromax in the future. In regards to her abdominal pains related to her prior intussusception and/or surgery, the patient states she has had evaluations by her surgeons over the past 2 years and has been seen by another research study assistant the thinking that some of her symptoms may be due to either some scarring and adhesions or, less likely, a mild stricture at the surgical anastomosis. If the patient is currently able to tolerate liquids, would begin on an oral diet and follow clinically. If her symptoms persist, re-evaluation by the surgical team might be suggested. We will follow as needed. SANDRA ROMO M.D. ANGELICA/[id number]
--- NOTE | 2019-03-30 13:54 | CON.PULM ---
Consult Consult Specialty:: PULMONARY Referred by:: [facility] Reason for Consultation:: BIBASILAR INFILTRATES - History of Present Illness Chief Complaint: N/V ABD CRAMPING PAIN History of Present Illness: This 28-year-old woman with a history of intussusception (June,), s/p repair and pneumonia diagnosed last week via the ER. She was given 5 day course of zithromax and sent home.She presents to ER 2 days ago with several day history of nausea and vomiting and abdominal pain. She has tolerated only soft or liquid diet over the last few days (finished 5-day course of azithromycin yesterday) accompanied by watery diarrhea over the last few days. No blood or coffee grounds in emesis. She has had mucus without blood in stools. About 2 hours prior to presentation, she had onset of steady mid abdominal pain, stating this is similar to the pain that she felt with intussusception in 2017. No fever/chills. Liquid BM'S was a few hours prior to arriving in the ER and she vomited on the way to the ER. Spoke with father and boyfriend, the patient has been vaping daily for past three years with THC to control N/V and abd cramping pain. I have been asked to evaluate abnormal bibasilar findings on CT abd. - History Source History Provided By: Patient, Family Member, Friend Limitations to Obtaining History: No Limitations - Past Medical History FIELD RESEARCH ASSOCIATE: No: Alzheimer's Cardio/Vascular: No: AFIB Pulmonary: No: Asthma, COPD Gastrointestinal: Yes: Other (abd pain with N/V diarrhea) Hepatobiliary: No: Cirrhosis Renal/: No: Renal Failure Reproductive: No: Postmenopausal ...: No Heme/Onc: Yes: Anemia Infectious Disease: No: AIDS Psych: Yes: Anxiety, Depression, Panic Musculoskeletal: No: Chronic low back pain Rheumatology: No: Fibromyalgia ENT: No: Allergic Rhinitis Endocrine: No: Diabetes Mellitus Dermatology: No: Basal Cell - Past Surgical History Additional Surgical History: repair small bowel intussuception - Alcohol/Substance Use Hx Alcohol Use: No History of Substance Use: reports: Marijuana - Smoking History Smoking history: Never smoked Have you smoked in the past 12 months: No Aproximately how many cigarettes per day: 0 - Social History ADL: Independent Place of : [facility] History of Recent Travel: No Home Medications - Allergies Allergies/Adverse Reactions: Allergies Allergy/AdvReac Type Severity Reaction Status Date / Time No Known Allergies Allergy Verified 03/29/19 06:08 - Home Medications Home Medications: Ambulatory Orders Ethinyl Estradiol/Drospirenone [Vestura 3 mg-0.02 mg Tablet] 1 each PO DAILY Clonazepam 1 mg PO DAILY 03/23/19 Escitalopram Oxalate [Lexapro -] 10 mg PO DAILY 03/23/19 Family Medical History Family History: Denies Review of Systems - Review of Systems Constitutional: reports: Fever, Loss of Appetite, Unintentional Wgt. Loss, Weakness Eyes: denies: Blurred Vision HENT: denies: Difficult Swallowing Neck: denies: Decreased ROM Cardiovascular: reports: Shortness of Breath. denies: Chest Pain, Palpitations Respiratory: reports: Cough, Exercise Intolerance, SOB on Exertion Gastrointestinal: reports: Abdominal Pain, Bloating, Nausea, Vomiting Genitourinary: reports: No Symptoms Breasts: reports: No Symptoms Reported Musculoskeletal: reports: No Symptoms Integumentary: reports: No Symptoms Physical Exam Vital Sings: Vital Signs Temperature 97.8 F 03/30/19 10:00 Pulse Rate 52 L 03/30/19 10:00 Respiratory Rate 17 03/30/19 10:00 Blood Pressure 101/61 03/30/19 10:00 O2 Sat by Pulse Oximetry (%) 99 03/30/19 10:00 Constitutional: Yes: Anxious Eyes: Yes: EOM Intact HENT: Yes: Normocephalic Neck: Yes: Trachea Midline Cardiovascular: Yes: Regular Rate and Rhythm Respiratory: Yes: Rales (faint inspiratory rales left base) ...Inspection: Yes: WNL Gastrointestinal: Yes: Soft, Other (normal bowels sounds/mild lower mid abdominal discomfort) Edema: No Integumentary: Yes: WNL Neurological: Yes: WNL ...Motor Strength: WNL Psychiatric: Yes: WNL Labs: CBC, BMP 03/30/19 07:22 03/30/19 07:22 rest reviewed Imaging - Results Chest X-ray: Report Reviewed, Image Reviewed Cat Scan: Report Reviewed, Image Reviewed Ultrasound: Report Reviewed MRI: Report Reviewed Problem List - Problems (1) Pneumonitis Code(s): J18.9 - PNEUMONIA, UNSPECIFIED ORGANISM (2) Abdominal pain Code(s): R10.9 - UNSPECIFIED ABDOMINAL PAIN (3) Nausea & vomiting Code(s): R11.2 - NAUSEA WITH VOMITING, UNSPECIFIED Assessment/Plan Bibasilar infiltrates noted on cat scan chest with a paucity of symptoms likely are chronic nature and could be related to her daily vaping over the last 2 1/2 years, EVALI (E-cigarette vaping acute lung injury) The fact that she had pulmonary symptoms a week ago may represent a flare or superimposed infection upon chronic lung changes. Will order CT chest no contrast/crp,esr/should have spo2 pre/post ambulation to check for desaturation, sputum culture if available. Full PFT's as outpatient. When clinically stable from a GI standpoint, would recommend diagnostic procedure i.e Lung biopsy via FOB or vat wedge. Encourage cessation of vaping immediately. Edward Banerjee MD
--- NOTE | 2019-03-30 14:18 | CONS ---
DATE OF CONSULTATION: 03/30/2019 REASON FOR CONSULTATION: Abdominal pain. This is an inpatient consultation. 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 Patient had prior to the surgery a history of abdominal pain and nausea that continued after the surgery for the last several years. She has had a workup by at [facility], which included an MRE, which was negative. She has not had a capsule study. She has not had a push enteroscopy. Over the past 2 years, her weight has remained essentially unchanged. She is noted to be 118 pounds today. In 2017, she was noted to be 119 pounds. She is also noted to have been to the emergency room before the surgery also for nausea and vomiting. Patient presented complaining of [id number] of nausea, vomiting, and diarrhea. She had a CAT scan of the abdomen and pelvis, which shows hepatomegaly, splenomegaly with possible colitis. She had an MRCP because of elevated liver function tests, which showed mesenteric edema but no evidence of bowel obstruction. There is also noted to be lung disease, which was new. Of note, the patient admits to vaping marijuana products. Her ultrasound also showed hepatomegaly. There was no bowel dilatation on CAT scan. The anastomosis is patent with gas seen throughout the colon, and there is no dilated bowel. Patient has remained in the hospital. She continues to complain of abdominal pain; however, she has been started on a clear liquid diet. PAST MEDICAL HISTORY: Significant for intussusception, anxiety disorder. PAST SURGICAL HISTORY: As stated in HPI. HOME MEDICATIONS: Include clonazepam and Lexapro. FAMILY HISTORY: Noncontributory. ALLERGIES: She has no known drug allergies. REVIEW OF SYSTEMS: General: Admits to anxiety and depression. Cardiac: Denies chest pain. Respiratory: Shortness of breath. Gastrointestinal: As stated in HPI. Nausea, vomiting, diarrhea. Denies blood in her stool. States that she had gained some weight recently but has now lost it again. Denies constipation. Genitourinary: Denies dysuria. Musculoskeletal: Denies joint pain. Psychiatric: Admits to anxiety and depression. PHYSICAL EXAMINATION: General: This is a thin 28-year-old female in no distress. Vital Signs: She is afebrile. HEENT: Her head is normocephalic. Her sclerae anicteric. Neck: Supple. Chest: Clear. Abdomen: Soft, nontender, nondistended. She has a well-healed, small, laparoscopic scar approximately 2 inches in length. There are no obvious hernias. Extremities: No edema. On review of her laboratory, her white blood cell count was 15 on admission. It is 11 today. Her chemistries showed initial elevation in liver function tests, which have nearly normalized today. Her albumin is low at 2.9. There were no inflammatory markers done. Hepatitis profile is pending. Imaging as in HPI. ASSESSMENT: This is a 28-year-old female with abdominal pain, nausea, vomiting, diarrhea, elevated liver function tests, hepatomegaly, and edema of her mesentery. Likely this is an infectious enteritis. She is currently improving to her baseline. There is no mechanical bowel obstruction. Her anastomosis appears normal. There is no evidence of bowel dilatation, which would make adhesions from previous laparoscopic surgery unlikely as the source of pain. As far as her chronic symptoms, I believe these are diet and mental related and not mechanically. She should follow up with GI and perhaps consider pursuing a capsule endoscopy. She also may attempt an exclusionary of certain food-type diet for 3 weeks at a time to see if anything is perhaps leading to her overall pain. There is some data that change in bacterial osvaldo in the colon can often alleviate symptoms of irritable bowel syndrome. Perhaps she should apply a nondairy, nonmeat, plant-based diet for 3 weeks to see if it offers her some relief. In either event, there is no indication for acute surgical intervention, and without an abnormality noted on a capsule study or a small-bowel series or an MRE, I would not offer a diagnostic laparoscopy especially since her symptoms predate her last laparoscopy. DO CATRACHITA SEAMAN/[id number]
[2019-03-30 14:20] VITALS: BP 112/74; PULSE 80; TEMP 98.3
[2019-03-30] MEDS ORDERED: clonazePAM 0.5 MG TABLET PO ONE (15:30)
--- NOTE | 2019-03-30 15:33 | DS ---
Physical Exam: SUBJECTIVE: Patient seen and examined OBJECTIVE: Vital Signs Period Temp Pulse Resp BP Sys/Mario Pulse Ox Last 24 Hr 97.5 F-98.3 F 52-84 16-18 95-128/55-85 95-99 PHYSICAL EXAM GENERAL: The patient is awake, alert, and fully oriented, in no acute distress. HEAD: Normal with no signs of trauma. EYES: PERRL, extraocular movements intact, sclera anicteric, conjunctiva clear. ENT: Ears normal, nares patent, oropharynx clear without exudates, moist mucous membranes. NECK: Trachea midline, full range of motion, supple. LUNGS: Breath sounds equal, clear to auscultation bilaterally, no wheezes, no crackles, no accessory muscle use. HEART: Regular rate and rhythm, S1, S2 without murmur, rub or gallop. ABDOMEN: Soft, nontender, nondistended, normoactive bowel sounds, no guarding, no rebound, no hepatosplenomegaly, no masses. EXTREMITIES: 2+ pulses, warm, well-perfused, no edema. NEUROLOGICAL: Cranial nerves II through XII grossly intact. Normal speech, gait not observed. PSYCH: Normal mood, normal affect. SKIN: Warm, dry, normal turgor, no rashes or lesions noted. LABS Laboratory Results - last 24 hr 03/29/19 03/29/19 03/30/19 06:15 20:00 07:22 WBC 11.9 H RBC 3.60 Hgb 10.3 L Hct 31.4 L MCV 87.2 MCH 28.7 MCHC 32.9 RDW 12.1 Plt Count 640 H MPV 7.7 Absolute Neuts (auto) 10.3 Neutrophils % No Result Required. Neutrophils % (Manual) 89.0 H Lymphocytes % No Result Required. Lymphocytes % (Manual) 8.0 Monocytes % (Manual) 3 L Hypochromia 1+ Platelet Estimate Increased Poikilocytosis 1+ Sodium 130 L Potassium 4.3 Chloride 94 L Carbon Dioxide 27 Anion Gap 9 BUN 3.7 L Creatinine 0.7 Est GFR (CKD-EPI)AfAm 137.62 Est GFR (CKD-EPI)NonAf 118.74 Random Glucose 108 H Calcium 9.0 Magnesium 2.1 Total Bilirubin 1.6 H AST 90 H ALT 79 H Alkaline Phosphatase 235 H Total Protein 7.8 Albumin 2.9 L Total Amylase 35 Lipase 118 Urine HCG, Qual Negative 03/30/19 07:22 WBC RBC Hgb Hct MCV MCH MCHC RDW Plt Count MPV Absolute Neuts (auto) Neutrophils % Neutrophils % (Manual) Lymphocytes % Lymphocytes % (Manual) Monocytes % (Manual) Hypochromia Platelet Estimate Poikilocytosis Sodium 136 Potassium 4.3 Chloride 104 Carbon Dioxide 23 Anion Gap 9 BUN 4.0 L Creatinine 0.4 L Est GFR (CKD-EPI)AfAm 165.44 Est GFR (CKD-EPI)NonAf 142.74 Random Glucose 96 Calcium 8.1 L Magnesium 1.9 Total Bilirubin 0.6 AST 22 ALT 38 Alkaline Phosphatase 118 H D Total Protein 6.2 L Albumin 2.3 L Total Amylase Lipase Urine HCG, Qual HOSPITAL COURSE: Date of Admission:03/29/19 Date of Discharge: 03/30/19 Discharge Summary Problems reviewed: Yes Reason For Visit: ABDOMINAL PAIN Current Active Problems Abdominal pain (Acute) Nausea & vomiting (Acute) Pneumonia (Acute) Pneumonitis (Acute) Condition: Stable - Instructions Diet, Activity, Other Instructions: It is recommended you follow up with your GI specialist at [place]. Advance your diet very slowly. Eat small, frequent meals. It is also recommended you follow up with pulmonoloigst Dr. Banerjee for outpatient followup. His contact information is enclosed. Referrals: Edward Banerjee MD [Staff Physician] - 2 Weeks Disposition: HOME - Home Medications Comprehensive Discharge Medication List: Ambulatory Orders Ethinyl Estradiol/Drospirenone [Vestura 3 mg-0.02 mg Tablet] 1 each PO DAILY Clonazepam 1 mg PO DAILY 03/23/19 Escitalopram Oxalate [Lexapro -] 10 mg PO DAILY 03/23/19
== END 2019-03-30 16:41 | disposition home or self-care (01) | DRG 391 ==
LOC: FER 06:04 → FM/S 11:21
PROVIDERS: ADMIT Internal Medicine; ATTEND Nurse Practitioner Acute Care
DX: A09 Infectious gastroenteritis and colitis, unspecified (principal); J18.9 Pneumonia, unspecified organism; K56.1 Intussusception; E87.1 Hypo-osmolality and hyponatremia; R10.9 Unspecified abdominal pain; F41.0 Panic disorder [episodic paroxysmal anxiety]; K31.84 Gastroparesis; R94.5 Abnormal results of liver function studies; R11.2 Nausea with vomiting, unspecified; R16.0 Hepatomegaly, not elsewhere classified
CPT/HCPCS: 36415; 71045-TC-FY; 71250-TC; 74177-TC; 74182-TC; 76705-TC; 80053; 80074; 81003; 82150; 83690; 83735; 84703; 85025; 86140; 87040; 87086; 99283-25; A9579; C1887; J0131; J7030